=== PATIENT | female | born 1965 | race Caucasian/White ===

== ENCOUNTER → 2016-09-19 | Outpatient (CLI) | payer OTHER ==
--- NOTE | 2016-09-19 14:31 | MM ---
Reason for exam: screening (asymptomatic). Baseline mammogram. History: Patient has history of other cancer at age 20 and had first child at age 32. Family history of breast cancer in maternal grandmother at age 73, breast cancer in paternal grandmother at age 50, and breast cancer in brother at age 18. Physical Findings: Nurse Summary: 0.5cm nodule in the left breast at 10 o'clock (nurse mm). MG Screening Mammo w CAD Bilateral CC and MLO view(s) were taken. There are scattered fibroglandular densities. Finding: There are typically benign calcifications in the left breast. There is no discrete abnormality. These results were verbally communicated with the patient and result sheet given to the patient on 09/19/16. ASSESSMENT: Benign, BI-RAD 2 RECOMMENDATION: Routine screening mammogram of both breasts in 1 year.
== END | disposition home or self-care (01) ==
LOC: RADMAMWWP 13:45
PROVIDERS: ATTEND Internal Medicine
DX: Z12.31 Encounter for screening mammogram for malignant neoplasm of breast (principal)

== ENCOUNTER → 2017-08-24 | Outpatient (CLI) | payer OTHER ==
--- NOTE | 2017-08-24 08:34 | US ---
EXAMINATION TYPE: US abdomen complete DATE OF EXAM: 08/24/2017 COMPARISON: NONE CLINICAL HISTORY: R10.9 abd and pel pain, N94.6 dysmenorrhagia. EXAM MEASUREMENTS: Liver Length: 17.1 cm Gallbladder Wall: 0.3 cm CBD: 0.3 cm Spleen: 11.2 cm Right Kidney: 11.8 x 4.6 x 6.4 cm Left Kidney: 12.7 x 4.9 x 5.4 cm exam somewhat limited due to body habitus and midline bowel gas. Pancreas: not visualized due to bowel gas Liver: wnl Gallbladder: No stones seen Evidence for sonographic Forte's sign: No CBD: wnl Spleen: wnl Right Kidney: No hydronephrosis or masses seen Left Kidney: No hydronephrosis or masses seen Upper IVC: wnl Abd Aorta: wnl The liver is homogenous. The intrahepatic portion of the IVC and proximal abdominal aorta are within normal limits. There is no evidence of cholelithiasis. Common bile duct is unremarkable. The visu alized portions of the pancreas are homogenous. The spleen is unremarkable. Kidneys are symmetric a nd free of hydronephrosis. No renal lesions are seen. IMPRESSION: Unremarkable study.
--- NOTE | 2017-08-24 08:37 | US ---
EXAMINATION TYPE: US pelvis complete transvag DATE OF EXAM: 08/24/2017 COMPARISON: NONE CLINICAL HISTORY: R10.9 abd and pel pain, N94.6 dysmenorrhagia. TECHNIQUE: Transvaginal (TV) and Transabdominal (TA) Date of LMP: June 2017 EXAM MEASUREMENTS: Uterus: 9.0 x 4.5 x 5.6 cm Endometrial Stripe: 1.3 cm Right Ovary: 5.4 x 4.2 x 3.3 cm Left Ovary: 2.7 x 3.0 x 1.4 cm 1. Uterus: Anteverted wnl 2. Endometrium: measures 1.3 cm, patient is perimenopausal 3. Right Ovary: cyst with daughter cyst measures 3.3 x 3.2 x 3.5 cm. 4. Left Ovary: wnl. 5. Bilateral Adnexa: wnl 6. Posterior cul-de-sac: no free fluid IMPRESSION: 1. Complex right ovarian cyst. Follow-up evaluation in 6 weeks is advised.
== END | disposition home or self-care (01) ==
LOC: RADUSWWP 07:36
PROVIDERS: ATTEND Internal Medicine
DX: N83.201 Unspecified ovarian cyst, right side (principal); Z88.6 Allergy status to analgesic agent; Z88.7 Allergy status to serum and vaccine
CPT/HCPCS: 76700; 76830; 76856

== ENCOUNTER 2018-09-15 19:36 | Emergency (ER) | payer BC, OTHER ==
[2018-09-15] MEDS ORDERED: DOCUSATE 283 MG/5 ML ENEMA RECTAL STA (20:42)
[2018-09-15 21:18] LABS: Basophils # (A) 0.1 k/uL (0-0.2); Basophils % (A) 1 %; Eosinophils # (A) 0.3 k/uL (0-0.7); Eosinophils % (A) 3 %; HGB 14.5 gm/dL (11.4-16.0); Lymphocytes # (A) 3.6 k/uL (1.0-4.8); Lymphocytes % (A) 41 %; MCH 30.4 pg (25.0-35.0); MCHC 33.7 g/dL (31.0-37.0); MCV 90.4 fL (80.0-100.0); Mean Platelet Volume 7.6; Monocytes # (A) 0.5 k/uL (0-1.0); Monocytes % (A) 5 %; Neutrophils # (A) 4.3 k/uL (1.3-7.7); Neutrophils % (A) 49 %; Platelet Count 285 k/uL (150-450); RBC 4.75 m/uL (3.80-5.40); RDW 13.1 % (11.5-15.5); WBC 8.8 k/uL (3.8-10.6)
[2018-09-15 21:27] LABS: ALT 24 U/L (9-52); AST 18 U/L (14-36); Alkaline Phosphatase 103 U/L (38-126); Anion Gap 8 mmol/L; Blood Urea Nitrogen 15 mg/dL (7-17); Calcium 9.9 mg/dL (8.4-10.2); Carbon Dioxide 26 mmol/L (22-30); Chloride 106 mmol/L (98-107); Glucose 87 mg/dL (74-99); Potassium 3.6 mmol/L (3.5-5.1); Sodium 140 mmol/L (137-145); Total Bilirubin 0.4 mg/dL (0.2-1.3); Total Protein 7.1 g/dL (6.3-8.2)
--- NOTE | 2018-09-15 21:42 | XR ---
EXAMINATION TYPE: XR KUB DATE OF EXAM: 09/15/2018 9:36 PM CLINICAL HISTORY: Constipation for 3 weeks TECHNIQUE: Single upright image of the abdomen is obtained. COMPARISON: None. FINDINGS: Scattered gas is seen in nondilated small bowel loops. Gas and fecal material is seen in no ndilated colon. There is no pneumoperitoneum or abnormal calcification appreciated. The lung bases ar e clear and the osseous structures are intact. IMPRESSION: Nonobstructive bowel gas pattern.
--- NOTE | 2018-09-15 21:50 | ED ---
General Adult HPI - General Chief complaint: Abdominal Pain Stated complaint: Constipated Time Seen by Provider: 09/15/18 20:39 Source: patient, family, RN notes reviewed, old records reviewed Mode of arrival: ambulatory Limitations: no limitations - History of Present Illness Initial comments: 53-year-old female patient with no pertinent past medical history presents to ED with approximately 3 weeks of waxing and waning constipation. Patient does report that she had a small bowel movement yesterday. Patient reports that she does have some sensation of abdominal fullness, and some mild low back pain which she normally gets she is constipated. Patient is tried multiple remedies at home without success. Patient not been previously evaluated for this problem. Patient denies any abdominal pain. Systemic: Pt denies fatigue, myalgia, fever/chills, rash. Pt denies weakness, night sweats, weight loss. Neuro: Pt denies headache, visual disturbances, syncope or pre-syncope. HEENT: Pt denies ocular discharge or irritation, otalgia, rhinorrhea, ph aryngitis or notable lymphadenopathy. Cardiopulmonary: Pt denies chest pain, SOB, heart palpitations, dyspnea on exertion. Abdominal/GI: Pt denies abdominal pain, n/v/d. : Pt denies dysuria, burning w/ urination, frequency/urgency. Denies new onset urinary or bowel incontinence. MSK: Pt denies myalgia, loss of strength or function in extremities. Neuro: Pt denies new onset weakness, paresthesias. - Related Data Home Medications Medication Instructions Recorded Confirmed Citalopram Hydrobromide [CeleXA] 40 mg PO DAILY 05/06/14 09/30/15 Losartan [Cozaar] 100 mg PO DAILY 05/06/14 09/30/15 Cetirizine HCl [Zyrtec] 10 mg PO DAILY 08/17/15 09/30/15 Clopidogrel [Plavix] 75 mg PO DAILY 08/17/15 09/30/15 Isosorbide Mononitrate ER [Imdur] 60 mg PO DAILY 08/17/15 09/30/15 Nitroglycerin Sl Tabs [Nitrostat] 0.4 mg SUBLINGUAL Q5M PRN 08/17/15 09/30/15 Pantoprazole Sodium [Protonix] 40 mg PO DAILY 08/17/15 09/30/15 Potassium 550 meq PO TID 08/17/15 09/30/15 traMADol HCl [Ultram] 50 mg PO Q4H PRN 08/17/15 09/30/15 L.acidoph,Paracasei, B.lactis 1 each PO DAILY 09/25/15 09/30/15 [Probiotic] Previous Rx's Medication Instructions Recorded ALPRAZolam [Xanax] 0.25 mg PO Q6HR PRN #0 tab 09/30/15 Allergies Allergy/AdvReac Type Severity Reaction Status Date / Time codeine Allergy Unknown Verified 09/15/18 19:43 tetanus and diphtheria Allergy Rash/Hives Verified 09/15/18 19:43 toxoids aspirin AdvReac Nausea & Verified 09/15/18 19:43 Vomiting Review of Systems ROS Statement: Those systems with pertinent positive or pertinent negative responses have been documented in the HPI. ROS Other: All systems not noted in ROS Statement are negative. 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 ulcer, hx. of low potassium per pt, SOB w/activitysee DR Latham H & P History of Any Multi-Drug Resistant Organisms: None Reported Past Surgical History: No Surgical Hx Reported Additional Past Surgical History / Comment(s): leep procedure Past Anesthesia/Blood Transfusion Reactions: No Reported Reaction Past Psychological History: Anxiety Smoking Status: Current every day smoker Past Alcohol Use History: None Reported Past Drug Use History: None Reported - Past Family History Mother Family Medical History: Congestive Heart Failure (CHF), CVA/TIA, Diabetes Mellitus, Hypertension Father Family Medical History: Cancer, COPD Additional Family Medical History / Comment(s): colon cancer General Exam - General Exam Comments Initial Comments: Constitutional: NAD, AOX3, Pt has pleasant affect. HEENT: NC/AT, trachea midline, neck supple, no lymphadenopathy. Posterior pharynx non erythematous, without exudates. External ears appear normal, without discharge. Mucous membranes moist. Eyes PERRLA, EOM intact. There is no scleral icterus. No pallor noted. Cardiopulmonary: RRR, no murmurs, rubs or gallops, no JVD noted. Lungs CTAB in anterior and posterior hurd. No peripheral edema. Abdominal exam: Abdomen soft and non-distended. Abdomen non-tender to palpation in all 4 quadrants. Bowel sounds active in LLQ. No hepatosplenomegaly. No ecchymosis Neuro: CN II-XII grossly intact. No nuchal rigidity. MSK: No posterior calf tenderness bilaterally, homans sign negative bilaterally. Posterior tibialis and radial pulse +2 bilaterally. Sensation intact in upper and lower extremities. Full active ROM in upper and lower extremities, 5/5 stregnth. Limitations: no limitations Course Vital Signs 09/15/18 09/15/18 19:38 21:09 Temperature 98.4 F 98.3 F Pulse Rate 77 67 Respiratory 16 18 Rate Blood Pressure 159/88 148/99 O2 Sat by Pulse 97 93 L Oximetry Medical Decision Making - Medical Decision Making 53-year-old female patient with no pertinent past medical history presents to ED with approximately 3 weeks of waxing and waning constipation. Patient does report that she had a small bowel movement yesterday. Patient reports that she does have some sensation of abdominal fullness, and some mild low back pain which she normally gets she is constipated. Patient is tried multiple remedies at home without success. Patient not been previously evaluated for this problem. Patient denies any abdominal pain. Patient vital signs stable, afebrile. Physical exam denies acute pathology. Abdomen soft and nondistended. Abdomen nontender to palpation in all 4 quadrants. Bowel sounds active. Pat ient does report that she is passing flatus. Laboratory investigations revealed noncompressive CBC, CMP. KUB displayed no acute abdomen. No bowel obstruction. Patient was administered a Therevac and she did have a bowel movement. Patient to follow with primary care physician on Monday for continued evaluation treatment of her constipation. Patient to return to ED if new signs symptoms develop or condition worsens in any way. Case discussed with Dr. Lafleur. - Lab Data Result diagrams: 09/15/18 21:06 09/15/18 21:06 Lab Results 09/15/18 09/15/18 Range/Units 21:06 21:06 WBC 8.8 (3.8-10.6) k/uL RBC 4.75 (3.80-5.40) m/uL Hgb 14.5 (11.4-16.0) gm/dL Hct 43.0 (34.0-46.0) % MCV 90.4 (80.0-100.0) fL MCH 30.4 (25.0-35.0) pg MCHC 33.7 (31.0-37.0) g/dL RDW 13.1 (11.5-15.5) % Plt Count 285 (150-450) k/uL Neutrophils % 49 % Lymphocytes % 41 % Monocytes % 5 % Eosinophils % 3 % Basophils % 1 % Neutrophils # 4.3 (1.3-7.7) k/uL Lymphocytes # 3.6 (1.0-4.8) k/uL Monocytes # 0.5 (0-1.0) k/uL Eosinophils # 0.3 (0-0.7) k/uL Basophils # 0.1 (0-0.2) k/uL Sodium 140 (137-145) mmol/L Potassium 3.6 (3.5-5.1) mmol/L Chloride 106 (98-107) mmol/L Carbon Dioxide 26 (22-30) mmol/L Anion Gap 8 mmol/L BUN 15 (7-17) mg/dL Creatinine 0.70 (0.52-1.04) mg/dL Est GFR (CKD-EPI)AfAm >90 (>60 ml/min/1.73 sqM) Est GFR (CKD-EPI)NonAf >90 (>60 ml/min/1.73 sqM) Glucose 87 (74-99) mg/dL Calcium 9.9 (8.4-10.2) mg/dL Total Bilirubin 0.4 (0.2-1.3) mg/dL AST 18 (14-36) U/L ALT 24 (9-52) U/L Alkaline Phosphatase 103 (38-126) U/L Total Protein 7.1 (6.3-8.2) g/dL Albumin 4.0 (3.5-5.0) g/dL Disposition Clinical Impression: Constipation Disposition: HOME SELF-CARE Condition: Stable Instructions (If sedation given, give patient instructions): High Fiber Diet (ED), Constipation (ED) Additional Instructions: Patient to adhere to previously discussed treatment plan and will take medication(s) as directed. Patient to follow up with PCP in 1-2 days. Patient to return to ED if symptoms do not improve. Is patient prescribed a controlled substance at d/c from ED?: No Referrals: Roberta Dahl MD [Primary Care Provider] - 1-2 days
[2018-09-15 22:59] VITALS: BP 124/77; PULSE 72; RESP 16; TEMP 98.4
== END 2018-09-15 23:02 | disposition home or self-care (01) ==
LOC: EC 19:36
DX: K59.00 Constipation, unspecified (principal); K21.9 Gastro-esophageal reflux disease without esophagitis; F41.9 Anxiety disorder, unspecified; F17.200 Nicotine dependence, unspecified, uncomplicated; Z79.02 Long term (current) use of antithrombotics/antiplatelets; Z79.899 Other long term (current) drug therapy; Z88.5 Allergy status to narcotic agent; Z88.6 Allergy status to analgesic agent; Z88.7 Allergy status to serum and vaccine
CPT/HCPCS: 36415; 74018; 80053; 85025; 99284

== ENCOUNTER 2018-09-25 08:31 | Day surgery (SDC) | payer BC ==
[2018-09-20 16:04] VITALS: BMI 30.7
[~2018-09-25 08:31] MED LIST: DEXAMETHASONE SOD PHOSPHATE 10 MG/ML 1 ML VIAL IV ONE; LACTATED RINGERS 1,000 ML IV SCH; ONDANSETRON 4 MG/2 ML VIAL IVP ONE
[2018-09-25 08:58] VITALS: RESP 16; TEMP 97.6
[2018-09-25] MEDS ORDERED: LIDOCAINE 1% 20 ML VIAL (10MG/ML) FOR IV START INTRADERMA ONE (09:06)
[2018-09-25] MEDS ORDERED: PROPOFOL 10 MG/ML 20 ML VIAL IV ONE (11:27)
[2018-09-25] MEDS ORDERED: LIDOCAINE 1% INJ 10MG/ML (20 ML MDV) ONE (11:27)
[2018-09-25] MEDS ORDERED: GLYCOPYRROLATE 0.2 MG/ML 2 ML VIAL ONE (11:27)
--- NOTE | 2018-09-25 12:13 | P.PCN ---
Date of Procedure: 09/25/18 Procedure(s) Performed: Procedures: 1. Esophagogastroduodenoscopy and biopsy. 2. Colonoscopy. Preoperative diagnosis: GERD, nausea and change in bowel habits. Postoperative diagnosis: 1. Small sliding hiatal hernia with no obvious esophagitis or complicated reflux disease. 2. Mild antral gastritis. 3. Biopsies obtained from the duodenum, antrum and esophagus. 4. Poor colon preparation, otherwise, exam to the cecum shows no obvious polyps or tumors. Preparation: HalfLytely prep. Sedation: Was provided by anesthesia. Brief clinical history: The patient is a 53-year-old female who is scheduled for this evaluation because of nausea, reflux symptoms and change in bowel habits in the form of constipation. No significant weight loss or black stools. The patient has chronic reflux and had history of peptic ulcer several years back. This evaluation is to assess for complicated reflux disease, colon neoplasia or other pathology. Procedure: With the patient on her left lateral decubitus position and after informed consent and adequate sedation, I passed the Olympus-GIF H190 video upper endoscope through the cricopharyngeus down the esophagus. There was a small sliding hiatal hernia but the esophagus showed no evidence of esophagitis or complicated reflux disease. The endoscope was then passed into the stomach which was insufflated with air and inspected in detail including the retroflex view in the cardia. There was some mottling and erythema in the antrum but no ulcers or erosions. Pyloric channel, duodenal bulb, post bulbar area and descending duodenum appeared within normal limits. I obtained biopsies from the duodenum, antrum and esophagus then the endoscope was withdrawn and I proceeded with the colonoscopy. Perianal area did not show any fissures or fistulas. There were no masses felt on digital rectal examination. The Olympus CFH 190L video colonoscope was then inserted in the rectum in the usual fashion and advanced to the cecum. The preparation was poor, however, there were no large polyps or tumors or any evidence of obstruction to account for her symptoms. Certainly, this was not an adequate exam to look for small polyps or superficial pathology because of the poor preparation. I retroflexed the endoscope in the rectum before the endoscope was withdrawn. The patient tolerated the procedure well. Plan: The patient was reassured. Will await biopsy results. For colon cancer screening, I recommended repeat exam after 2 day preparation at her earliest convenience. She will follow-up with you as planned.
[2018-09-25 12:30] VITALS: BP 118/76; PULSE 66
== END 2018-09-25 12:41 | disposition home or self-care (01) ==
LOC: ORWHC2ENDO 08:31
DX: K29.50 Unspecified chronic gastritis without bleeding (principal); K20.0 Eosinophilic esophagitis; K21.9 Gastro-esophageal reflux disease without esophagitis; R19.4 Change in bowel habit; K44.9 Diaphragmatic hernia without obstruction or gangrene; Z87.11 Personal history of peptic ulcer disease; I10 Essential (primary) hypertension; I20.9 Angina pectoris, unspecified; F17.200 Nicotine dependence, unspecified, uncomplicated; M19.90 Unspecified osteoarthritis, unspecified site; Z86.73 Personal history of transient ischemic attack (TIA), and cerebral infarction without residual deficits; Z79.02 Long term (current) use of antithrombotics/antiplatelets; Z79.899 Other long term (current) drug therapy; Z88.5 Allergy status to narcotic agent; Z88.6 Allergy status to analgesic agent; Z91.040 Latex allergy status
CPT/HCPCS: 81025; 88305; 45378; 43239; J2001; J2704

== ENCOUNTER 2019-05-27 17:17 | Observation (INO) | payer BC ==
[2019-05-27] MEDS ORDERED: SODIUM CHLORIDE 0.9% 1,000 ML IV STA (18:27)
--- NOTE | 2019-05-27 18:33 | ED ---
General Adult HPI <AmeeApoorvaIndy Janet - Last Filed: 05/27/19 19:13> - General Source: patient, RN notes reviewed Mode of arrival: ambulatory Limitations: no limitations <Nader Obrien - Last Filed: 05/27/19 22:03> - General Chief complaint: Syncope Stated complaint: Near syncope Time Seen by Provider: 05/27/19 17:50 - History of Present Illness Initial comments: Is a 53-year-old female with a prior history of TIA for half years ago who states she's had for the past month a headache located over the occipital parietal region normally 78/10 severity and is worse /10 she states she began having episodes of almost passing out recently have been as many as 2 or 3 times a day. She has been seen by her doctor and is in the process of being set up with neurology. She initially denied any fevers chills nausea vomiting sweats he later states that she's had some shakes past 2 days he also started having vaginal bleeding that she's been through menopause already. No other modifying factors this time she is states when the pain gets very severe she feels like all of her limbs just go very weak nothing focal however. (Nader Obrien) - Related Data Home Medications Medication Instructions Recorded Confirmed Citalopram Hydrobromide [CeleXA] 40 mg PO DAILY 05/06/14 09/20/18 Losartan [Cozaar] 75 mg PO DAILY 05/06/14 09/20/18 Cetirizine HCl [Zyrtec] 10 mg PO DAILY 08/17/15 09/20/18 Clopidogrel [Plavix] 75 mg PO DAILY 08/17/15 09/20/18 Isosorbide Mononitrate ER [Imdur] 60 mg PO DAILY 08/17/15 09/20/18 Nitroglycerin Sl Tabs [Nitrostat] 0.4 mg SUBLINGUAL Q5M PRN 08/17/15 09/20/18 Pantoprazole Sodium [Protonix] 40 mg PO DAILY 08/17/15 09/20/18 Potassium 550 meq PO TID 08/17/15 09/20/18 traMADol HCl [Ultram] 50 mg PO Q4H PRN 08/17/15 09/20/18 Allergies Allergy/AdvReac Type Severity Reaction Status Date / Time apple Allergy Itching Verified 05/27/19 21:58 codeine Allergy PASSED OUT Verified 05/27/19 21:58 latex Allergy Rash/Hives Verified 05/27/19 21:58 tetanus and diphtheria Allergy Rash/Hives Verified 05/27/19 21:58 toxoids aspirin AdvReac Nausea & Verified 05/27/19 21:58 Vomiting Review of Systems ROS Other: All systems not noted in ROS Statement are negative. <Indy Lubin - Last Filed: 05/27/19 19:13> ROS Other: All systems not noted in ROS Statement are negative. <Nader Obrien - Last Filed: 05/27/19 22:03> ROS Statement: Those systems with pertinent positive or pertinent negative responses have been documented in the HPI. 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 ulcer, hx. of low potassium per pt, ,TIA History of Any Multi-Drug Resistant Organisms: None Reported Past Surgical History: No Surgical Hx Reported Additional Past Surgical History / Comment(s): leep procedure Past Anesthesia/Blood Transfusion Reactions: No Reported Reaction Past Psychological History: Anxiety Smoking Status: Current every day smoker Past Alcohol Use History: None Reported Past Drug Use History: None Reported - Past Family History Mother Family Medical History: Congestive Heart Failure (CHF), CVA/TIA, Diabetes Mellitus, Hypertension Father Family Medical History: Cancer, COPD Additional Family Medical History / Comment(s): colon cancer <Nader Obrien - Last Filed: 05/27/19 22:03> General Exam External exam: Present: normal external exam. Absent: swelling, lesions, lacerations Speculum exam: Present: cervical discharge (Brownish/reddish discharge present). Absent: erythema, foreign body, laceration By manual exam: Present: normal by manual exam <Indy Lubin - Last Filed: 05/27/19 19:13> Limitations: no limitations General appearance: alert, anxious Head exam: Present: atraumatic, normocephalic, normal inspection, other (Some tenderness palpation of the occipital scalp especially on the left this is extending down to the occipital scalp and into the paraspinous muscles of the neck.) Eye exam: Present: normal appearance, PERRL, EOMI. Absent: scleral icterus, conjunctival injection, periorbital swelling ENT exam: Present: normal exam, mucous membranes moist Neck exam: Present: normal inspection, full ROM, other (No stridor JVD or bruits no spinous process tenderness. Full range of motion). Absent: tenderness, meningismus, lymphadenopathy Respiratory exam: Present: normal lung sounds bilaterally. Absent: respiratory distress, wheezes, rales, rhonchi, stridor Cardiovascular Exam: Present: regular rate, normal rhythm, normal heart sounds. Absent: systolic murmur, diastolic murmur, rubs, gallop, clicks GI/Abdominal exam: Present: soft, normal bowel sounds. Absent: distended, ten derness, guarding, rebound, rigid Extremities exam: Present: normal inspection, full ROM, normal capillary refill. Absent: tenderness, pedal edema, joint swelling, calf tenderness Back exam: Present: normal inspection Neurological exam: Present: alert, oriented X3, CN II-XII intact Psychiatric exam: Present: normal affect, normal mood Skin exam: Present: warm, dry, intact, normal color. Absent: rash <Nader Obrien - Last Filed: 05/27/19 22:03> - General Exam Comments Initial Comments: This is a well-developed obese female who is awake alert oriented 3 (Nader Obrien) Course Vital Signs 05/27/19 05/27/19 17:27 21:58 Temperature 98.3 F Pulse Rate 86 72 Respiratory 18 17 Rate Blood Pressure 158/98 144/95 O2 Sat by Pulse 97 96 Oximetry EKG Findings - EKG Results: EKG: interpreted by ERMD (Sinus rhythm 84. We'll 136 QRS duration 90 QT since QTC 378/446 nonspecific inferior configuration also nonspecific anterior configuration.) <Nader Obrien - Last Filed: 05/27/19 22:03> Medical Decision Making - Lab Data Result diagrams: 05/27/19 15:50 05/27/19 15:50 <Indy Lubin - Last Filed: 05/27/19 19:13> - Lab Data Result diagrams: 05/27/19 15:50 05/27/19 15:50 - Radiology Data Radiology results: report reviewed (I did review the imaging and report no acute findings.), image reviewed <Nader Obrien - Last Filed: 05/27/19 22:03> - Medical Decision Making Patient did get some relief from her headache however thus far the near syncopal episodes or unexplained. On reevaluation patient states she's not actually ever passed out she felt like she could have and can't 3 episodes today. I did discuss the findings with the patient family I did recommend admission the patient will be admitted I did discuss case with Dr. Marshall. The patient will be seen by neurology in the morning. (Nader Obrien) - Lab Data Lab Results 05/27/19 05/27/19 05/27/19 Range/Units 15:50 15:50 15:50 WBC 13.0 H (3.8-10.6) k/uL RBC 5.00 (3.80-5.40) m/uL Hgb 15.6 (11.4-16.0) gm/dL Hct 45.9 (34.0-46.0) % MCV 91.8 (80.0-100.0) fL MCH 31.2 (25.0-35.0) pg MCHC 34.0 (31.0-37.0) g/dL RDW 13.0 (11.5-15.5) % Plt Count 336 (150-450) k/uL Neutrophils % 81 % Lymphocytes % 14 % Monocytes % 4 % Eosinophils % 1 % Basophils % 0 % Neutrophils # 10.5 H (1.3-7.7) k/uL Lymphocytes # 1.8 (1.0-4.8) k/uL Monocytes # 0.5 (0-1.0) k/uL Eosinophils # 0.1 (0-0.7) k/uL Basophils # 0.1 (0-0.2) k/uL PT 10.4 (9.0-12.0) sec INR 1.0 (<1.2) APTT 24.6 (22.0-30.0) sec Sodium 140 (137-145) mmol/L Potassium 4.3 (3.5-5.1) mmol/L Chloride 101 (98-107) mmol/L Carbon Dioxide 29 (22-30) mmol/L Anion Gap 10 mmol/L BUN 10 (7-17) mg/dL Creatinine 0.76 (0.52-1.04) mg/dL Est GFR (CKD-EPI)AfAm >90 (>60 ml/min/1.73 sqM) Est GFR (CKD-EPI)NonAf >90 (>60 ml/min/1.73 sqM) Glucose 106 H (74-99) mg/dL Calcium 10.4 H (8.4-10.2) mg/dL Magnesium 1.8 (1.6-2.3) mg/dL Total Bilirubin 0.2 (0.2-1.3) mg/dL AST 19 (14-36) U/L ALT 18 (9-52) U/L Alkaline Phosphatase 119 (38-126) U/L Creatine Kinase 32 (30-135) U/L Troponin I (0.000-0.034) ng/mL Total Protein 8.3 H (6.3-8.2) g/dL Albumin 4.8 (3.5-5.0) g/dL Urine Color Urine Appearance (Clear) Urine pH (5.0-8.0) Ur Specific [place] (1.001-1.035) Urine Protein (Negative) Urine Glucose (UA) (Negative) Urine Ketones (Negative) Urine Blood (Negative) Urine Nitrite (Negative) Urine Bilirubin (Negative) Urine Urobilinogen (<2.0) mg/dL Ur Leukocyte Esterase (Negative) Urine RBC (0-5) /hpf Urine WBC (0-5) /hpf Ur Squamous Epith Cells (0-4) /hpf Trichomonas Ag (Rapid) (Negative) 05/27/19 05/27/19 05/27/19 Range/Units 15:50 19:00 19:35 WBC (3.8-10.6) k/uL RBC (3.80-5.40) m/uL Hgb (11.4-16.0) gm/dL Hct (34.0-46.0) % MCV (80.0-100.0) fL MCH (25.0-35.0) pg MCHC (31.0-37.0) g/dL RDW (11.5-15.5) % Plt Count (150-450) k/uL Neutrophils % % Lymphocytes % % Monocytes % % Eosinophils % % Basophils % % Neutrophils # (1.3-7.7) k/uL Lymphocytes # (1.0-4.8) k/uL Monocytes # (0-1.0) k/uL Eosinophils # (0-0.7) k/uL Basophils # (0-0.2) k/uL PT (9.0-12.0) sec INR (<1.2) APTT (22.0-30.0) sec Sodium (137-145) mmol/L Potassium (3.5-5.1) mmol/L Chloride (98-107) mmol/L Carbon Dioxide (22-30) mmol/L Anion Gap mmol/L BUN (7-17) mg/dL Creatinine (0.52-1.04) mg/dL Est GFR (CKD-EPI)AfAm (>60 ml/min/1.73 sqM) Est GFR (CKD-EPI)NonAf (>60 ml/min/1.73 sqM) Glucose (74-99) mg/dL Calcium (8.4-10.2) mg/dL Magnesium (1.6-2.3) mg/dL Total Bilirubin (0.2-1.3) mg/dL AST (14-36) U/L ALT (9-52) U/L Alkaline Phosphatase (38-126) U/L Creatine Kinase (30-135) U/L Troponin I <0.012 (0.000-0.034) ng/mL Total Protein (6.3-8.2) g/dL Albumin (3.5-5.0) g/dL Urine Color Light Yellow Urine Appearance Clear (Clear) Urine pH 7.0 (5.0-8.0) Ur Specific [place] 1.006 (1.001-1.035) Urine Protein Negative (Negative) Urine Glucose (UA) Negative (Negative) Urine Ketones Negative (Negative) Urine Blood Small H (Negative) Urine Nitrite Negative (Negative) Urine Bilirubin Negative (Negative) Urine Urobilinogen <2.0 (<2.0) mg/dL Ur Leukocyte Esterase Negative (Negative) Urine RBC 1 (0-5) /hpf Urine WBC 1 (0-5) /hpf Ur Squamous Epith Cells 2 (0-4) /hpf Trichomonas Ag (Rapid) Negative (Negative) Disposition <Indy Lubin - Last Filed: 05/27/19 19:13> <Nader Obrien - Last Filed: 05/27/19 22:03> Clinical Impression: Near syncope, Cephalgia Disposition: ADMITTED IP TO THIS HOSP Condition: Fair Referrals: Roberta Dahl MD [Primary Care Provider] - 1-2 days
[2019-05-27 18:51] LABS: Basophils # (A) 0.1 k/uL (0-0.2); Basophils % (A) 0 %; Eosinophils # (A) 0.1 k/uL (0-0.7); Eosinophils % (A) 1 %; HCT 45.9 % (34.0-46.0); HGB 15.6 gm/dL (11.4-16.0); Lymphocytes # (A) 1.8 k/uL (1.0-4.8); Lymphocytes % (A) 14 %; MCH 31.2 pg (25.0-35.0); MCV 91.8 fL (80.0-100.0); Mean Platelet Volume 6.8; Monocytes # (A) 0.5 k/uL (0-1.0); Monocytes % (A) 4 %; Neutrophils # (A) 10.5 k/uL (1.3-7.7); Neutrophils % (A) 81 %; Platelet Count 336 k/uL (150-450)
--- NOTE | 2019-05-27 18:55 | CT ---
EXAMINATION TYPE: CT brain marissa leach DATE OF EXAM: 05/27/2019 COMPARISON: None HISTORY: Syncope and head pain. CT DLP: 1568.[address] of the brain was performed. The ventricles, basal cisterns and sulci overlying the cerebral convexities demonstrate mild enlargem ent. There is no evidence for intracranial hemorrhage or sulcal effacement. There is decreased attenuatio n about the periventricular white matter and deep white matter of both cerebral hemispheres, compatib le with chronic small vessel ischemia. No mass effects are seen. If symptoms persist consider MRI. Osseous calvarium is intact. IMPRESSION: 1. Age related atrophic and chronic small vessel ischemic change without acute intracranial process seen at this time. CT Cervical Spine: Unenhanced CT of the cervical spine was performed with bone and soft tissue window settings submitted . Coronal and sagittal reconstruction is obtained. There is normal alignment and prevertebral soft tissues. No evidence for acute cervical fracture . Scattered degenerative disc disease and spondylosis. Biapical scarring. IMPRESSION: 1. No evidence for acute fracture or subluxation of the cervical spine.
[2019-05-27 18:59] LABS: Partial Thromboplastin Time 24.6 sec (22.0-30.0); Prothrombin Time 10.4 sec (9.0-12.0)
[2019-05-27 19:00] LABS: ALT 18 U/L (9-52); AST 19 U/L (14-36); African American GFR (CKD) >90 (>60 ml/min/1.73 sqM); Albumin 4.8 g/dL (3.5-5.0); Alkaline Phosphatase 119 U/L (38-126); Anion Gap 10 mmol/L; Blood Urea Nitrogen 10 mg/dL (7-17); Calcium 10.4 mg/dL (8.4-10.2); Carbon Dioxide 29 mmol/L (22-30); Chloride 101 mmol/L (98-107); Creatine Kinase 32 U/L (30-135); Glucose 106 mg/dL (74-99); Magnesium 1.8 mg/dL (1.6-2.3); Non-African American GFR(CKD) >90 (>60 ml/min/1.73 sqM); Potassium 4.3 mmol/L (3.5-5.1); Sodium 140 mmol/L (137-145); Total Bilirubin 0.2 mg/dL (0.2-1.3); Total Protein 8.3 g/dL (6.3-8.2)
--- NOTE | 2019-05-27 19:06 | XR ---
EXAMINATION TYPE: XR chest 2V DATE OF EXAM: 05/27/2019 COMPARISON: NONE HISTORY: Shortness of breath TECHNIQUE: Frontal and lateral views of the chest are obtained. FINDINGS: Scattered senescent parenchymal changes noted. No evidence for infiltrate. No evidence for atelectasis. Heart size is stable. Mediastinal structures are stable and grossly unremarkable. No evidence for hilar prominence. Degenerative changes dorsal spine. IMPRESSION: 1. No evidence for acute pulmonary disease.
[2019-05-27 19:26] LABS: Appearance,Urine Clear (Clear); Bilirubin,Urine Negative (Negative); Blood,Urine Small (Negative); Color,Urine Light Yellow; Glucose,Urine (UA) Negative (Negative); Ketones,Urine Negative (Negative); Leukocyte Esterase,Urine Negative (Negative); Nitrite,Urine Negative (Negative); Protein,Urine Negative (Negative); RBC,Urine 1 /hpf (0-5); Specific Gravity,Urine 1.006 (1.001-1.035); Squamous Epithelial Cell,Urine 2 /hpf (0-4); Urobilinogen,Urine <2.0 mg/dL (<2.0); WBC,Urine 1 /hpf (0-5)
[2019-05-27] MEDS ORDERED: HYDROmorphone 1 MG/ML 1 ML SYRINGE IVP STA (21:02)
[2019-05-27] MEDS ORDERED: ONDANSETRON 4 MG/2 ML VIAL IVP PRN (22:09)
[2019-05-27] MEDS ORDERED: HYDROmorphone 1 MG/ML 1 ML SYRINGE IVP PRN (22:09)
[2019-05-27] MEDS ORDERED: NALOXONE 0.4 MG/ML 1 ML VIAL IV PRN (22:09)
[2019-05-27] MEDS ORDERED: MECLIZINE 12.5 MG TAB PO PRN (22:18)
[2019-05-27] MEDS ORDERED: NITROGLYCERIN SL TABS 0.4 MG TAB SUBLINGUAL PRN (22:18)
[2019-05-28] MEDS ORDERED: buPROPion SR 150 MG TABLET.ER PO SCH ×2 (00:44→19:00)
[2019-05-28] MEDS: LOSARTAN 25 MG TAB PO SCH ×2 (01:30→20:56)
[2019-05-28] MEDS: ISOSORBIDE MONONITRATE ER 60 MG TAB.ER.24H PO SCH ×2 (01:31→20:56)
[2019-05-28] MEDS: QUEtiapine 50 MG TAB PO SCH ×2 (01:31→20:57)
[2019-05-28] MEDS: LOSARTAN 50 MG TAB PO SCH ×2 (01:56→20:57)
[2019-05-28] MEDS: SODIUM CHLORIDE 0.9% 1,000 ML IV SCH ×2 (04:42→21:07)
--- NOTE | 2019-05-28 07:47 | P.HPIM ---
History of Present Illness This is a pleasant 53 years old female with past medical history of angina status post cardiac cath which was cleared as per documentation, CVA/TIA, GERD, hypertension, osteoarthritis, anxiety, cigarette smoker about half pack per day. Who presents because of headache and periods of losing control of self, pt states for the last month she is been having headache almost continously but it got more sever from 4-5/10 to 10/10 before she loose control of self and her limbs , it lasts about 5 min however she never lose consciousness during these attacks after that she returns back to baseline. During these attacks she denies seizure-like activity as at bedtime when these episodes. No urine or bowel incontinence, no tongue biting. He was getting these attacks about every 2 days over the last month, got more frequent over the last week in the rate of 2-3 times per day so she decided to come to the hospital. Also she follows with Dr. Frankel the rod welder once a year since she had the TIA, she saw him about 2 weeks ago and he placed her on a heart monitor and pending the results reading. Patient denies other symptoms. She denies chest pain or dyspnea or palpitation, no dizziness, no blurred vision or difficulty talking or swallowing. No weakness or numbness in limbs. No urine or bowel incontinence. However 3 days ago she had postmenopausal bleeding, about half cup of blood, with no genital or abdominal pain. She has been opposed for about 1.5 years. Vitals stable and showing mild leukocytosis of 13 K, unremarkable INR, BMP and liver enzymes. First troponin is negative, urine analysis is negative. EKG showing normal sinus rhythm at [address]-T changes. QTC is 446. Chest x-ray: No acute pulmonary process. CT of the head: No acute process, and cervical CT scan: No fracture or subluxation. In the emergency room she got 1 dose of Dilaudid 1 mg and Ativan limits She smokes about a pack that last her 3 days Review of Systems CONSTITUTIONAL: No fever, no malaise, no fatigue. HEENT: No recent visual problems or hearing problems. Denied any sore throat. CARDIOVASCULAR: No orthopnea, PND, no palpitations, no syncope. PULMONARY: No shortness of breath, no cough, no hemoptysis. GASTROINTESTINAL: No diarrhea, no nausea, no vomiting, no abdominal pain. Normoactive bowel sounds. NEUROLOGICAL: No headaches, no weakness, no numbness. HEMATOLOGICAL: Denies any bleeding or petechiae. GENITOURINARY: Denies any burning micturition, frequency, or urgency. MUSCULOSKELETAL/RHEUMATOLOGICAL: Denies any joint pain, swelling, or any muscle pain. ENDOCRINE: Denies any polyuria or polydipsia. 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 ulcer, hx. of low potassium per pt, ,TIA History of Any Multi-Drug Resistant Organisms: None Reported Past Surgical History: No Surgical Hx Reported, Heart Catheterization Additional Past Surgical History / Comment(s): leep procedure, CARDIAC CATH CLEAR Past Anesthesia/Blood Transfusion Reactions: No Reported Reaction Past Psychological History: Anxiety Smoking Status: Current every day smoker Past Alcohol Use History: None Reported Additional Past Alcohol Use History / Comment(s): has smoked since age of 14, 10 cigs/day Past Drug Use History: None Reported - Past Family History Mother Family Medical History: Congestive Heart Failure (CHF), CVA/TIA, Diabetes Mellitus, Hypertension Father Family Medical History: Cancer, COPD Additional Family Medical History / Comment(s): colon cancer Medications and Allergies Home Medications Medication Instructions Recorded Confirmed Type Citalopram Hydrobromide [CeleXA] 40 mg PO DAILY@189905/06/14 05/27/19 History Losartan [Cozaar] 50 mg PO DAILY@189905/06/14 05/27/19 History Cetirizine HCl [Zyrtec] 10 mg PO DAILY@189908/17/15 05/27/19 History Isosorbide Mononitrate ER [Imdur] 60 mg PO DAILY@189908/17/15 05/27/19 History Nitroglycerin Sl Tabs [Nitrostat] 0.4 mg SUBLINGUAL Q5M PRN 08/17/15 05/27/19 History Pantoprazole Sodium [Protonix] 40 mg PO DAILY@189908/17/15 05/27/19 History Aspirin EC [Ecotrin Low Dose] 81 mg PO DAILY@189905/27/19 05/27/19 History Cholecalciferol (Vitamin D3) 2,000 unit PO DAILY@19005/27/19 05/27/19 History [Vitamin D3] Cider Vinegar [Apple Cider Vinegar] 300 mg PO DAILY@189905/27/19 05/27/19 History Cyanocobalamin (Vitamin B-12) 1,000 mcg PO DAILY@19005/27/19 05/27/19 History [Vitamin B-12] Garlic 1 tab PO DAILY@189905/27/19 05/27/19 History Losartan [Cozaar] 25 mg PO DAILY@189905/27/19 05/27/19 History Meclizine [Antivert] 12.5 mg PO DAILY PRN 05/27/19 05/27/19 History Vaughn-3 Fatty Acids/Fish Oil [Fish 1 cap PO DAILY@189905/27/19 05/27/19 History Oil 1,000 mg Softgel] Ondansetron [Zofran ODT] 4 mg PO Q8HR PRN 05/27/19 05/27/19 History Potassium 200 mg PO DAILY@189905/27/19 05/27/19 History QUEtiapine [SEROquel] 50 mg PO HS 05/27/19 05/27/19 History buPROPion HCL [Wellbutrin SR] 150 mg PO DAILY@189905/27/19 05/27/19 History Allergies Allergy/AdvReac Type Severity Reaction Status Date / Time apple Allergy Itching Verified 05/27/19 21:58 codeine Allergy PASSED OUT Verified 05/27/19 21:58 latex Allergy Rash/Hives Verified 05/27/19 21:58 tetanus and diphtheria Allergy Rash/Hives Verified 05/27/19 21:58 toxoids aspirin AdvReac Nausea & Verified 05/27/19 21:58 Vomiting Physical Exam Vitals: Vital Signs Temp Pulse Pulse Resp BP BP Pulse Ox 05/28/19 04:00 69 18 05/28/19 00:00 98.8 F 69 18 155/96 05/27/19 22:39 98.8 F 69 18 155/96 05/27/19 21:58 72 17 144/95 96 05/27/19 17:27 98.3 F 86 18 158/98 97 Intake and Output 05/27/19 05/27/19 05/28/19 14:59 22:59 06:59 Other: Voiding Method Toilet # Voids 2 Weight 86.183 kg GENERAL: The patient is alert and oriented x3, not in any acute distress. Well developed, well nourished. HEENT: Pupils are round and equally reacting to light. EOMI. No scleral icterus. No conjunctival pallor. Normocephalic, atraumatic. No pharyngeal erythema. No thyromegaly. CARDIOVASCULAR: S1 and S2 present. No murmurs, rubs, or gallops. PULMONARY: Chest is clear to auscultation, no wheezing or crackles. ABDOMEN: Soft, nontender, nondistended, normoactive bowel sounds. No palpable organomegaly. MUSCULOSKELETAL: No joint swelling or deformity. Mild tenderness in the neck area with no shoulder tenderness EXTREMITIES: No cyanosis, clubbing, or pedal edema. NEUROLOGICAL: Gross neurological examination did not reveal any focal deficits. Cranial nerves are grossly intact, strength is 5/5 and sensation is intact in all extremities. Meningeal signs are absent SKIN: No rashes. No petechiae Results CBC & Chem 7: 05/27/19 15:50 05/27/19 15:50 Labs: Abnormal Lab Results - Last 24 Hours (Table) 05/27/19 05/27/19 05/27/19 Range/Units 15:50 15:50 19:00 WBC 13.0 H (3.8-10.6) k/uL Neutrophils # 10.5 H (1.3-7.7) k/uL Glucose 106 H (74-99) mg/dL Calcium 10.4 H (8.4-10.2) mg/dL Total Protein 8.3 H (6.3-8.2) g/dL Urine Blood Small H (Negative) Microbiology - Last 24 Hours (Table) 05/27/19 19:35 Genital Culture - Preliminary Cervix Thrombosis Risk Factor Assmnt - Choose All That Apply Any of the Below Risk Factors Present?: Yes Each Factor Represents 1 point: Age 41-60 years Other Risk Factors: No Other congenital or acquired thrombophilia - If yes, enter type in comment: No Thrombosis Risk Factor Assessment Total Risk Factor Score: 1 Thrombosis Risk Factor Assessment Level: Low Risk Assessment and Plan Assessment: Attacks of sudden loss of muscle tone associated with headache, concerning for neurological problem like cataplexy versus other Postmenopausal bleeding Mild leukocytosis, no other signs of infection, no respiratory symptoms, no urinary symptoms, no rash, no diarrhea History of TIA Hypertension GERD Primary osteoarthritis Anxiety Nicotine dependence, patient is counseled and she refuses nicotine patch Plan: This is a pleasant 53 years old female who presents with attacks of loss of tone and headache. Neurological consult. Carotid duplex was ordered by ED team, we'll follow the results. Also we will consult a outside b2b sales for her postmenopausal bleeding Labs and medication were reviewed.. Continue same treatment. Continue with symptomatic treatment. Resume home medication. Monitor lytes and vitals. DVT and GI prophylaxis. Further recommendations of the clinical course of the patient DVT prophylaxis: Subcutaneous heparin GI Prophylaxis: Pepcid Prognosis is guarded
--- NOTE | 2019-05-28 08:05 | US ---
EXAMINATION TYPE: US carotid duplex BILAT DATE OF EXAM: 05/28/2019 COMPARISON: NONE CLINICAL HISTORY: Near syncopal episodes. almost passed out EXAM MEASUREMENTS: RIGHT: Peak Systolic Velocity (PSV) cm/sec ----- Right CCA: 47.8 ----- Right ICA: 65.0 ----- Right ECA: 102.9 ICA/CCA ratio: 1.4 RIGHT: End Diastole cm/sec ----- Right CCA: 13.9 ----- Right ICA: 26.5 ----- Right ECA: 16.0 LEFT: Peak Systolic Velocity (PSV) cm/sec ----- Left CCA: 54.5 ----- Left ICA: 82.6 ----- Left ECA: 76.5 ICA/CCA ratio: 1.5 LEFT: End Diastole cm/sec ----- Left CCA: 19.6 ----- Left ICA: 33.7 ----- Left ECA: 14.5 VERTEBRALS (direction of flow): Right Vertebral: Antegrade Left Vertebral: Antegrade Rhythm: Normal Mild homogeneous plaque with no significant stenosis seen Grayscale, color Doppler, spectral Doppler imaging performed. Waveform analysis does not show signifi cant stenosis of the internal carotid arteries by Doppler criteria. IMPRESSION: No hemodynamic significant stenosis of the proximal internal carotid arteries by Doppler criteria, an indirect measurement of carotid stenosis
[2019-05-28] MEDS: HEPARIN SODIUM,PORCINE 5,000 UNIT/ML 1 ML VIAL SQ SCH ×2 (08:11→20:57)
[2019-05-28 08:16] LABS: Basophils # (A) 0.1 k/uL (0-0.2); Basophils % (A) 1 %; Eosinophils # (A) 0.2 k/uL (0-0.7); Eosinophils % (A) 2 %; HCT 43.2 % (34.0-46.0); HGB 14.4 gm/dL (11.4-16.0); Lymphocytes % (A) 33 %; MCH 30.9 pg (25.0-35.0); MCHC 33.3 g/dL (31.0-37.0); Mean Platelet Volume 7.4; Monocytes # (A) 0.6 k/uL (0-1.0); Monocytes % (A) 5 %; Neutrophils # (A) 6.9 k/uL (1.3-7.7); Neutrophils % (A) 57 %; Platelet Count 307 k/uL (150-450); RBC 4.64 m/uL (3.80-5.40); WBC 12.1 k/uL (3.8-10.6)
[2019-05-28 08:38] LABS: African American GFR (CKD) >90 (>60 ml/min/1.73 sqM); Anion Gap 8 mmol/L; Blood Urea Nitrogen 10 mg/dL (7-17); Calcium 9.3 mg/dL (8.4-10.2); Carbon Dioxide 29 mmol/L (22-30); Chloride 104 mmol/L (98-107); Glucose 80 mg/dL (74-99); Non-African American GFR(CKD) >90 (>60 ml/min/1.73 sqM); Potassium 3.8 mmol/L (3.5-5.1); Sodium 141 mmol/L (137-145)
[2019-05-28] MEDS ORDERED: FAMOTIDINE 20 MG/2 ML VIAL IV SCH (09:00)
--- NOTE | 2019-05-28 12:04 | US ---
EXAMINATION TYPE: US pelvic complete DATE OF EXAM: 05/28/2019 COMPARISON: Previous dated 08/24/2017 CLINICAL HISTORY: post menopausal bleed. Post monopausal bleeding. TECHNIQUE: Transabdominal (TA). Patient refused transvaginal exam EXAM MEASUREMENTS: Uterus: 8.4 x 3.5 x 4.1 cm Endometrial Stripe: .8 cm Left Ovary: 2.6 x 2.0 x 2.3 cm 1. Uterus: Anteverted wnl 2. Endometrium: wnl 3. Right Ovary: Obscured by overlying bowel gas 4. Left Ovary: wnl 5. Bilateral Adnexa: wnl 6. Posterior cul-de-sac: wnl IMPRESSION: Limitations the exam. No significant abnormalities evident
--- NOTE | 2019-05-28 12:14 | P.CNNES ---
History of Present Illness Consult date: 05/28/19 Requesting physician: Nader Obrien Reason for Consult: Near syncopal episodes History of Present Illness: Patient is a 53-year-old female who came to the hospital for recurrent episodes of near syncope. Patient states that the symptoms initially started in December, occurred for a couple times and then went away. She was fine until a month ago when she started having these recurrent similar spells. Patient has developed constant pain in the top of the head and on the sides that she rates 4-6/10. Patient states that the pain feels like as if she has hit her head on the corner of the cabinet on standing up. The pain sometimes intensifies to 10/10 and then she "loses everything", which she describes as not feeling her arms or legs and her body gets numb. This lasts for about 5 minutes. Thereafter she wants to go to sleep and could sleep for a whole day. She never passes out with this episode. In the last 5 days these episodes are occurring about 3 times a day. Since 05/25/2019, the pain on the top has extended to the back of the head and the neck. Patient states that in the last few days, she has couple times woken up and feeling her body is shaking that may last for 5-10 minutes. She denies any fever or chills, although feels hot sometimes and gets cold sweat. She states that she was exposed to a person at her work, who was later diagnosed with viral meningitis. Patient denies diabetes or hyperlipidemia. She does have hypertension. She has smoked one third pack per day since age 20. Patient states she had history of a TIA 4 years ago for which she was started on Plavix 75 mg daily. Just on 05/11/2019, the Plavix was discontinued by her snath handle assembler and was started on aspirin 81 mg daily. Patient had an MRI of the brain with and without contrast on 02/04/2014 which revealed a nonenhancing signal changes within the shivam consistent with demyelinating disease, MS, Lyme disease. A follow-up MRI of the brain with contrast on 04/08/2014 was normal. Patient had a normal chest x-ray, carotid Doppler showed no significant strict stenosis. EKG showed normal sinus rhythm. Inferior infarct, age undetermined. Review of Systems Positive for headaches, tremors. Denies chest pain, shortness of breath, diplopia, loss of vision, slurred speech, facial droop. Denies dysphagia, nausea vomiting diarrhea. Patient is having some spotting for which she is being seen by a parking enforcement technician. All other review of systems unremarkable. 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 ulcer, hx. of low potassium per pt, ,TIA History of Any Multi-Drug Resistant Organisms: None Reported Past Surgical History: No Surgical Hx Reported, Heart Catheterization Additional Past Surgical History / Comment(s): leep procedure, CARDIAC CATH CLEAR Past Anesthesia/Blood Transfusion Reactions: No Reported Reaction Past Psychological History: Anxiety Smoking Status: Current every day smoker Past Alcohol Use History: None Reported Additional Past Alcohol Use History / Comment(s): has smoked since age of 14, 10 cigs/day Past Drug Use History: None Reported - Past Family History Mother Family Medical History: Congestive Heart Failure (CHF), CVA/TIA, Diabetes Mellitus, Hypertension Father Family Medical History: Cancer, COPD Additional Family Medical History / Comment(s): colon cancer Medications and Allergies Home Medications Medication Instructions Recorded Confirmed Type Citalopram Hydrobromide [CeleXA] 40 mg PO DAILY@189905/06/14 05/27/19 History Losartan [Cozaar] 50 mg PO DAILY@189905/06/14 05/27/19 History Cetirizine HCl [Zyrtec] 10 mg PO DAILY@189908/17/15 05/27/19 History Isosorbide Mononitrate ER [Imdur] 60 mg PO DAILY@189908/17/15 05/27/19 History Nitroglycerin Sl Tabs [Nitrostat] 0.4 mg SUBLINGUAL Q5M PRN 08/17/15 05/27/19 History Pantoprazole Sodium [Protonix] 40 mg PO DAILY@189908/17/15 05/27/19 History Aspirin EC [Ecotrin Low Dose] 81 mg PO DAILY@189905/27/19 05/27/19 History Cholecalciferol (Vitamin D3) 2,000 unit PO DAILY@189905/27/19 05/27/19 History [Vitamin D3] Cider Vinegar [Apple Cider Vinegar] 300 mg PO DAILY@1900 05/27/19 05/27/19 History Cyanocobalamin (Vitamin B-12) 1,000 mcg PO DAILY@1900 05/27/19 05/27/19 History [Vitamin B-12] Garlic 1 tab PO DAILY@1900 05/27/19 05/27/19 History Losartan [Cozaar] 25 mg PO DAILY@1900 05/27/19 05/27/19 History Meclizine [Antivert] 12.5 mg PO DAILY PRN 05/27/19 05/27/19 History Grace-3 Fatty Acids/Fish Oil [Fish 1 cap PO DAILY@19005/27/19 05/27/19 History Oil 1,000 mg Softgel] Ondansetron [Zofran ODT] 4 mg PO Q8HR PRN 05/27/19 05/27/19 History Potassium 200 mg PO DAILY@1900 05/27/19 05/27/19 History QUEtiapine [SEROquel] 50 mg PO HS 05/27/19 05/27/19 History buPROPion HCL [Wellbutrin SR] 150 mg PO DAILY@1900 05/27/19 05/27/19 History Allergies Allergy/AdvReac Type Severity Reaction Status Date / Time apple Allergy Itching Verified 05/27/19 21:58 codeine Allergy PASSED OUT Verified 05/27/19 21:58 latex Allergy Rash/Hives Verified 05/27/19 21:58 tetanus and diphtheria Allergy Rash/Hives Verified 05/27/19 21:58 toxoids aspirin AdvReac Nausea & Verified 05/27/19 21:58 Vomiting Physical Examination - Vital Signs Vital Signs: Vital Signs Temp Pulse Pulse Resp BP BP Pulse Ox 05/28/19 11:24 97.5 F L 68 18 122/80 97 05/28/19 07:10 97.6 F 71 18 91/57 94 L 05/28/19 04:00 69 18 05/28/19 00:00 98.8 F 69 18 155/96 05/27/19 22:39 98.8 F 69 18 155/96 05/27/19 21:58 72 17 144/95 96 05/27/19 17:27 98.3 F 86 18 158/98 97 Intake and Output 05/27/19 05/28/19 05/28/19 22:59 06:59 14:59 Other: Voiding Method Toilet Toilet # Voids 2 Weight 86.183 kg On examination patient is a middle aged female, in no distress. Patient is alert and awake oriented to time place and person. Speech and language functions are normal. Attention and concentration fund of knowledge is adequate. On cranial nerve examination pupils are round and reactive to light, visual hurd are full on confrontation, extraocular muscles are intact. She has mild left facial asymmetry on active testing. Tongue protrudes the midline. Palatal elevation and sensation normal. On muscle strength testing patient has left pronation, no drift. Strength is normal in the arms and legs distally and proximally. Reflexes are 2+ all over and plantars are downgoing. Sensory touch is equal with no neglect. No ataxia for [id number] testing, tone and bulk of muscles normal. Gait deferred. There is no carotid bruit or murmur, peripheral pulses present. Results Calcium is mildly elevated 10.4. UA is negative. Her last hemoglobin A1c 5.8 on 01/19/2017. B12 was 2172 on 05/08/2019, TSH is normal, total T4 normal. Cholesterol is 227, LDL 136, HDL 49 and triglycerides 209. Liver panel is normal. Patient previously had negative rheumatoid factor, Sjogren's antibodies, LIVING ADVISOR antibodies, dsDNA and Larson antibody on 05/06/2014. - Laboratory Findings CBC and BMP: 05/28/19 07:24 05/28/19 07:24 Abnormal Lab Findings: Abnormal Labs 05/27/19 05/27/19 05/27/19 15:50 15:50 19:00 WBC 13.0 H Neutrophils # 10.5 H Glucose 106 H Calcium 10.4 H Total Protein 8.3 H Urine Blood Small H 05/28/19 07:24 WBC 12.1 H Neutrophils # Glucose Calcium Total Protein Urine Blood Assessment and Plan Assessment: * 53-year-old female admitted with new onset headache for the last 1 month, has developed recurrent stereotypical episodes of numbness and weakness of all 4 extremities, lasting for 4-5 minutes, followed by fatigue and somnolence. Concerning for TIAs, given significant small vessel disease in the pontine region noted on the previous MRI 4 years ago. Rule out seizures, though appears less likely. Rule out vertebrobasilar insufficiency. * Hypertension * Hyperlipidemia * Tobacco use Plan: * Patient will undergo a stat EEG to rule out any epileptiform activity. * We will check an MRI of the brain to rule out CVA and to follow-up on the previous pontine lesion. We will also check an MRA of head and MRA of the neck with and without contrast to rule out vertebral artery dissection or basilar artery stenosis. * We will stop Wellbutrin, as Wellbutrin can lower the seizure threshold. Patient was started on Wellbutrin in December 2018, when these symptoms started. * We will resume Plavix 75 mg daily for stroke prevention (stopped Plavix 05/11/2019 by her snath handle assembler), as symptoms got worse after stopping Plavix. Continue aspirin 81 mg daily. Agree with starting Lipitor for dyslipidemia. Patient was not on the statins at home. * Check hemoglobin A1c and fasting lipid panel. * Tobacco cessation. * Neurology will follow.
[2019-05-28 12:30] LABS: Cholesterol 256 mg/dL (<200); HDL Cholesterol 54 mg/dL (40-60); LDL Cholesterol,Calculated 173 mg/dL (0-99); Triglycerides 145 mg/dL (<150)
[2019-05-28] MEDS: CLOPIDOGREL 75 MG TAB PO SCH (13:37)
[2019-05-28 13:46] LABS: N. gonorrhoeae,PCR Negative (Neg,Equiv); Neisseria Source Cervix
[2019-05-28 14:00] LABS: C. trachomatis,PCR Negative (Neg,Equiv); Chlamydia trachomatis Source Cervix
--- NOTE | 2019-05-28 14:57 | MR ---
EXAMINATION TYPE: MR brain wo con DATE OF EXAM: 05/28/2019 2:48 PM COMPARISON: NONE HISTORY: TIA FINDINGS: The ventricles, basal cisterns and sulci overlying the cerebral convexities are minimally enlarged. There is evidence of minimal periventricular white matter ischemic demyelination. Increased T2 signa l within the region of the midbrain and shivam likely reflective of remote insults in this region. Remote deep white matter insults are also noted. No acute edema is seen on diffusion weighted imaging. There is no evidence for midline shift or mass effect. Acute intracranial hemorrhage or extra-axial collection is not evident. The paranasal sinuses and mastoid air cells are well-aerated. IMPRESSION: Age-related atrophic and chronic small vessel ischemic change. No acute intracranial process at this time.
--- NOTE | 2019-05-28 15:10 | MR ---
EXAMINATION TYPE: MR angio head wo con DATE OF EXAM: 05/28/2019 3:06 PM COMPARISON: NONE HISTORY: Recurrent TIA, R/O vertebral artery dissection Three-dimensional [id number] intracranial MRA was performed with multiple intensity projection im ages submitted and source data reviewed at the workstation. The vertebrobasilar system as well as intracranial portions of the internal carotid arteries and thei r major tributaries are patent. I do not see evidence for sizable aneurysm or vascular malformation. IMPRESSION: Normal study.
--- NOTE | 2019-05-28 15:51 | EEG ---
ELECTROENCEPHALOGRAM REPORT DATE OF SERVICE: 05/28/2019. PREAMBLE: This is a 53-year-old female who has recurrent episodes of some altered mental status, with weakness and numbness of arms and legs. This study is performed to evaluate for any epileptiform activity. EEG FINDINGS: A routine 21-channel awake digital EEG recording was accomplished utilizing the 10/20 international system with bipolar and referential montages. The background consists of well developed, well regulated, moderate amplitude activity in 8 to 9 Hz alpha. The background is posterior-dominant and reactive to eye opening and closing. Photic driving response was seen in some flash frequencies. Drowsiness was seen with appearance of bilaterally symmetric theta frequency. Deeper stages of sleep were not seen. Hyperventilation was not performed. During the later part of the study, there were 2 instances of relatively higher amplitude, slightly sharply contoured theta frequency seen in the left temporal region, occurred during drowsiness. EKG rhythm lead revealed no obvious arrhythmia. IMPRESSION AND PLAN: This is a borderline abnormal study due to the presence of 2 instances of slightly higher amplitude, sharply contoured theta seen in the left temporal region. This may be a nonspecific finding, although it may suggest underlying cortical neuronal dysfunction with some irritability. As this abnormality was questionable, would suggest prolonged or sleep-deprived EEG for further evaluation. Clinical correlation is strongly recommended. MMODL / IJN: [id number] / MTDD
[2019-05-28] MEDS ORDERED: ASPIRIN 81 MG PO SCH (19:00)
[2019-05-28] MEDS ORDERED: LOSARTAN 25 MG TAB PO SCH (19:00)
[2019-05-28] MEDS ORDERED: NON FORMULARY DRUG (Omega-3 Fatty Acids/Fish Oil [Fish Oil 1,000 Mg Softgel] 1 CAP) PO SCH (19:00)
[2019-05-28] MEDS ORDERED: LOSARTAN 50 MG TAB PO SCH (19:00)
[2019-05-28] MEDS ORDERED: CITALOPRAM HYDROBROMIDE 20 MG TAB PO SCH (19:00)
[2019-05-28] MEDS ORDERED: POTASSIUM 200 MG PO SCH (19:00)
[2019-05-28] MEDS ORDERED: CYANOCOBALAMIN 500 MCG TAB PO SCH (19:00)
[2019-05-28] MEDS ORDERED: ISOSORBIDE MONONITRATE ER 60 MG TAB.ER.24H PO SCH (19:00)
[2019-05-28] MEDS ORDERED: LORATADINE 10 MG TAB PO SCH (19:00)
[2019-05-28] MEDS ORDERED: NON FORMULARY DRUG (Garlic [Garlic] 1 TAB) PO SCH (19:00)
[2019-05-28] MEDS ORDERED: CHOLECALCIFEROL 1,000 UNIT TAB PO SCH (19:00)
[2019-05-28] MEDS ORDERED: PANTOPRAZOLE 40 MG TABLET PO SCH (19:00)
--- NOTE | 2019-05-28 19:50 | P.OBCN ---
History of Present Illness Consult date: 05/28/19 Requesting physician: Quique Marshall Reason for consult: other (Postmenopausal bleeding) Chief complaint: Headaches History of present illness: Milly is a very pleasant 53-year-old female 1 para 1 who with through menarche at approximately age 12-13 and at age 51 stopped having periods. That was about a year and a half ago. She relates that she stopped abruptly and had some very dark clotty heavy bleeding just before it stopped. At that time she saw Dr. Carver at [facility] who did a Pap smear and some type of cervical biopsy as she also had a history of cervical disease. I do not have records for what was done so since entirely possible she also had a endometrial biopsy at that time. I don't have any prior ultrasounds either. Her ultrasound this morning did show a mildly thickened endometrium at 0.8 cm which is more than the standard of 0.5 cm for postmenopausal female. In discussing with her she relates that she passed about a half a couple blood 2 nights ago in an earlier today she also had a little bit of light bleeding but nothing heavy and nothing that is required had since then and at this time the bleeding appears to have stopped. I did interview her with her significant other and a due relate that they have had intercourse recently and they're concerned that potentially there is something going on from having intercourse. I did relate that it is possible that some of the bleeding was from the intercourse but with a thickened endometrium that needed to be evaluated either way. We discussed whether she would go back to Dr. Carver or she would see me, she expresses interest in just coming to see me in the office so we can schedule either an endometrial biopsy or D&C with hysteroscopy. All questions were answered for her at this time. An y significant pelvic exam was deferred until the office. Otherwise her vital signs are stable and afebrile. All questions were answered for her at this time she will follow up with me shortly after discharge once these other symptoms are improved and then we can move forwards getting final diagnosis for her. 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 ulcer, hx. of low potassium per pt, ,TIA History of Any Multi-Drug Resistant Organisms: None Reported Past Surgical History: No Surgical Hx Reported, Heart Catheterization Additional Past Surgical History / Comment(s): leep procedure, CARDIAC CATH CLEAR Past Anesthesia/Blood Transfusion Reactions: No Reported Reaction Past Psychological History: Anxiety Smoking Status: Current every day smoker Past Alcohol Use History: None Reported Additional Past Alcohol Use History / Comment(s): has smoked since age of 14, 10 cigs/day Past Drug Use History: None Reported - Past Family History Mother Family Medical History: Congestive Heart Failure (CHF), CVA/TIA, Diabetes Mellitus, Hypertension Father Family Medical History: Cancer, COPD Additional Family Medical History / Comment(s): colon cancer Medications and Allergies Home Medications Medication Instructions Recorded Confirmed Type Citalopram Hydrobromide [CeleXA] 40 mg PO DAILY@189905/06/14 05/27/19 History Losartan [Cozaar] 50 mg PO DAILY@189905/06/14 05/27/19 History Cetirizine HCl [Zyrtec] 10 mg PO DAILY@189908/17/15 05/27/19 History Isosorbide Mononitrate ER [Imdur] 60 mg PO DAILY@189908/17/15 05/27/19 History Nitroglycerin Sl Tabs [Nitrostat] 0.4 mg SUBLINGUAL Q5M PRN 08/17/15 05/27/19 History Pantoprazole Sodium [Protonix] 40 mg PO DAILY@189908/17/15 05/27/19 History Aspirin EC [Ecotrin Low Dose] 81 mg PO DAILY@189905/27/19 05/27/19 History Cholecalciferol (Vitamin D3) 2,000 unit PO DAILY@189905/27/19 05/27/19 History [Vitamin D3] Cider Vinegar [Apple Cider Vinegar] 300 mg PO DAILY@189905/27/19 05/27/19 History Cyanocobalamin (Vitamin B-12) 1,000 mcg PO DAILY@189905/27/19 05/27/19 History [Vitamin B-12] Garlic 1 tab PO DAILY@189905/27/19 05/27/19 History Losartan [Cozaar] 25 mg PO DAILY@189905/27/19 05/27/19 History Meclizine [Antivert] 12.5 mg PO DAILY PRN 05/27/19 05/27/19 History [place]-3 Fatty Acids/Fish Oil [Fish 1 cap PO DAILY@1900 05/27/19 05/27/19 History Oil 1,000 mg Softgel] Ondansetron [Zofran ODT] 4 mg PO Q8HR PRN 05/27/19 05/27/19 History Potassium 200 mg PO DAILY@1900 05/27/19 05/27/19 History QUEtiapine [SEROquel] 50 mg PO HS 05/27/19 05/27/19 History buPROPion HCL [Wellbutrin SR] 150 mg PO DAILY@1900 05/27/19 05/27/19 History Allergies Allergy/AdvReac Type Severity Reaction Status Date / Time apple Allergy Itching Verified 05/27/19 21:58 codeine Allergy PASSED OUT Verified 05/27/19 21:58 latex Allergy Rash/Hives Verified 05/27/19 21:58 tetanus and diphtheria Allergy Rash/Hives Verified 05/27/19 21:58 toxoids aspirin AdvReac Nausea & Verified 05/27/19 21:58 Vomiting Exam Osteopathic Statement: *. No significant issues noted on an osteopathic s tructural exam other than those noted in the History and Physical/Consult. Vital Signs Temp Pulse Pulse Resp BP BP Pulse Ox 05/28/19 19:02 98.0 F 83 16 126/81 97 05/28/19 15:29 97.7 F 83 18 142/89 98 05/28/19 11:24 97.5 F L 68 18 122/80 97 05/28/19 07:10 97.6 F 71 18 91/57 94 L 05/28/19 04:00 69 18 05/28/19 00:00 98.8 F 69 18 155/96 05/27/19 22:39 98.8 F 69 18 155/96 05/27/19 21:58 72 17 144/95 96 Intake and Output 05/28/19 05/28/19 05/28/19 06:59 14:59 22:59 Intake Total 340 240 Balance 340 240 Intake: Oral 240 240 Other 100 Other: Voiding Method Toilet Toilet Toilet # Voids 2 Results Result Diagrams: 05/28/19 07:24 05/28/19 07:24 Abnormal Lab Results - Last 24 Hours (Table) 05/28/19 05/28/19 Range/Units 07:24 07:24 WBC 12.1 H (3.8-10.6) k/uL Cholesterol 256 H (<200) mg/dL LDL Cholesterol, Calc 173 H (0-99) mg/dL Microbiology - Last 24 Hours (Table) 05/27/19 19:35 Genital Culture - Preliminary Cervix
[2019-05-28 20:30] LABS: Hemoglobin A1C 5.5 % (4.0-6.0)
[2019-05-28] MEDS: NICOTINE 7MG/24HR PATCH TRANSDERM SCH (20:56)
[2019-05-28] MEDS: AMOXIC-POT CLAV 875-125MG 1 EACH TAB PO SCH (20:57)
[2019-05-28] MEDS ORDERED: PRAVASTATIN SODIUM 80 MG TAB PO SCH (21:00)
[2019-05-28] MEDS ORDERED: QUEtiapine 50 MG TAB PO SCH (21:00)
[2019-05-28] MEDS ORDERED: ACETAMINOPHEN TAB 325 MG TAB PO STA (21:18)
[2019-05-29 06:21] LABS: Basophils # (A) 0.1 k/uL (0-0.2); Basophils % (A) 1 %; Eosinophils # (A) 0.2 k/uL (0-0.7); Eosinophils % (A) 2 %; HGB 13.9 gm/dL (11.4-16.0); Lymphocytes # (A) 3.9 k/uL (1.0-4.8); Lymphocytes % (A) 45 %; MCH 30.9 pg (25.0-35.0); MCHC 33.1 g/dL (31.0-37.0); MCV 93.2 fL (80.0-100.0); Mean Platelet Volume 7.4; Monocytes # (A) 0.5 k/uL (0-1.0); Monocytes % (A) 5 %; Neutrophils # (A) 3.9 k/uL (1.3-7.7); Neutrophils % (A) 45 %; Platelet Count 264 k/uL (150-450); WBC 8.6 k/uL (3.8-10.6)
[2019-05-29 06:31] LABS: African American GFR (CKD) >90 (>60 ml/min/1.73 sqM); Anion Gap 6 mmol/L; Blood Urea Nitrogen 10 mg/dL (7-17); Calcium 9.2 mg/dL (8.4-10.2); Carbon Dioxide 28 mmol/L (22-30); Chloride 106 mmol/L (98-107); Glucose 94 mg/dL (74-99); Non-African American GFR(CKD) >90 (>60 ml/min/1.73 sqM); Potassium 3.9 mmol/L (3.5-5.1); Sodium 140 mmol/L (137-145)
[2019-05-29] MEDS: HEPARIN SODIUM,PORCINE 5,000 UNIT/ML 1 ML VIAL SQ SCH (09:12)
[2019-05-29] MEDS: AMOXIC-POT CLAV 875-125MG 1 EACH TAB PO SCH (09:12)
[2019-05-29] MEDS: NICOTINE 7MG/24HR PATCH TRANSDERM SCH (09:12)
[2019-05-29] MEDS: CLOPIDOGREL 75 MG TAB PO SCH (09:12)
--- NOTE | 2019-05-29 10:51 | P.PN ---
Subjective Progress Note Date: 05/29/19 Patient states she is feeling much better. The headache has resolved. She has not had any further episodes of altered mental status. Patient appeared very pleasant. Wants to go home. Denies any focal symptoms. Patient is afebrile. WBC count is now normal 8.6. Normal differential. No signs of infection. Objective - Vital Signs Vital signs: Vital Signs Temp 97.7 F 05/29/19 07:35 Pulse 72 05/29/19 04:00 Resp 17 05/29/19 07:35 BP 93/57 05/29/19 07:35 Pulse Ox 96 05/29/19 07:35 Intake & Output 05/28/19 05/29/19 05/29/19 18:59 06:59 18:59 Intake Total 580 Balance 580 Intake: Oral 480 Other 100 Other: Voiding Method Toilet Toilet Toilet # Voids 1 - Exam Patient's mental status, speech and language functions are normal. Muscle strength is normal. No ataxia. Tone and bulk of muscles normal. - Labs CBC & Chem 7: 05/29/19 04:54 05/29/19 04:51 Labs: Abnormal Lab Results - Last 24 Hours (Table) 05/28/19 Range/Units 07:24 Cholesterol 256 H (<200) mg/dL LDL Cholesterol, Calc 173 H (0-99) mg/dL Assessment and Plan Assessment: * Recurrent episodes of numbness tingling and weakness of all 4 extremities, possible TIA. * Abnormal brain MRI with evidence of small vessel disease involving the shivam. Likely from vascular risk factors as below. * Hypertension * Hyperlipidemia * Tobacco use Plan: * EEG was reviewed. Mildly abnormal with left temporal slowing is of unclear etiology. Doubt seizures. No indication of antiepileptic medication. * MRI of the brain revealed no acute stroke. Patient does have significant small vessel disease noted in the shivam. This could be potentially symptomatic. MRA of the head was normal with no evidence of large vessel disease. * We will stop Wellbutrin, as Wellbutrin can lower the seizure threshold. Patient was started on Wellbutrin in December 2018, when these symptoms started. * Continue dual antiplatelet medications including Plavix 75 mg and aspirin 81 mg daily for stroke prevention. * Patient's hemoglobin A1c is 5.5. Total cholesterol is 256, LDL 173, HDL 54 and triglycerides 145. Target LDL is <100. Patient previously was not tolerant to Lipitor. Patient has been started on pravastatin 80 mg daily. * Strongly recommended tobacco cessation. * May follow-up with the neurology as an outpatient in 2-4 weeks. * Neurologically clear for discharge.
[2019-05-29 12:02] VITALS: BP 104/69; PULSE 67; RESP 18; TEMP 98.3
--- NOTE | 2019-05-30 21:56 | P.DS ---
Providers Date of admission: 05/29/19 09:09 Attending physician: Quique Marshall MD Consults: 05/27/19 22:16 Consult Physician Routine Consulting Provider: Ilda Sal Consult Reason/Comments: Near syncopal episodes Do you want consulting provider notified?: Yes 05/28/19 08:39 Consult Physician Routine Consulting Provider: Gavin West Consult Reason/Comments: post [place]ap[place] bleed Do you want consulting provider notified?: Yes Primary care physician: Nabila Granados Hospital Course: Dx: Attacks of sudden loss of muscle tone associated with headache, possible due to medication effect, or TIA, versus others Postmenopausal bleeding Mild leukocytosis, possible mild genital infection vs mild resp infection , responded to therapy and back to normal History of TIA Hypertension GERD Primary osteoarthritis Anxiety Nicotine dependence, patient is counseled and she refuses nicotine patch hospital course This is a pleasant 53 years old female with past medical history of angina status post cardiac cath which was cleared as per documentation, CVA/TIA, GERD, hypertension, osteoarthritis, anxiety, cigarette smoker about half pack per day. Who presents because of headache and periods of losing control of self, pt states for the last month she is been having headache almost continuously but it got more sever from 4-5/10 to 10/10 before she loose control of self and her limbs , it lasts about 5 min however she never lose consciousness during these attacks after that she returns back to baseline. During these attacks she denies seizure-like activity as at bedtime when these episodes. No urine or bowel incontinence, no tongue biting.He was getting these attacks about every 2 days over the last month, got more frequent over the last week in the rate of 2-3 times per day so she decided to come to the hospital.labs were showing mild leukocytosis of 13 K, CT of the head: No acute process, and cervical CT scan: No fracture or subluxation. neurologist evaluated the pt, EEG was reviewed. Mildly abnormal with left temporal slowing is of unclear etiology. Doubt seizures. No indication of antiepileptic medication per neurologist evaluation. MRI/MRA of the head did not show a cause . wellbutrin was stopped per neurologist recommendation. plavix is added to her Rx regiment. continue with aspirin and pravastatin. BP on the low side , so losartan was not added, pt to continue with he home medication for BP control and to f/u with her pcp pt was treated with short course of augmentin for possible mild genital infection vs mild resp infection.both improved and resolved prior to discharge and wbc is back to normal BP was on the low-normal lever, so we lowered her losartan from 75 to 50 mg daily and instructed to f/u with her doctors soon for rechecking BP and she ag rishi. Also she follows with Dr. Frankel the transportation clerk once a year since she had the TIA, she saw him about 2 weeks ago and he placed her on a heart monitor and pending the results reading. she told me that she intends to follow up with him soon for the results. 3 days prior to admission, she had postmenopausal bleeding, about half cup of blood, with no genital or abdominal pain. She has menopause for about 1.5 years. premium service representative evaluated pt , pelvic US; Her ultrasound this morning did show a mildly thickened endometrium at 0.8 cm which is more than the standard of 0.5 cm for postmenopausal female. pt will follow up with for either endometrial biopsy or D&C with hysteroscopy, and she told me the same. on the day of discharge she returned to her baseline with no chest pain, no dyspnea, no change in urine or bowel habit , no nausea or vomiting , no abd pain , she is tolerating diet well . no fever pt was cleared by neurologist and premium service representative teams for discharge Pt was instructed about the problems and management plan and Pt verbalized understanding and acceptance Pt is found stable and can be discharged to the community but needs follow up as outpt. pt was instructed to follow up with his PCP in one week and pt agrees pt agrees with appointments with neurology and gynecology services and their timing and stated he will follow up with both Discharge exam Gen.: Patient alert awake and oriented X 3, NOT IN DISTRESS CVS: s1-s2, RRR, no murmur CHEST:bilateral CTA, no wheezing or crepitation Abdomen: Soft, no tenderness, no distention, positive bowel sounds Extremities: No leg edema or induration time spent : more than 35 min Patient Condition at Discharge: Fair Plan - Discharge Summary New Discharge Prescriptions: New Amoxic-Pot Clav 875-125Mg [Augmentin 875-125] 1 each PO Q12HR #2 tab Nicotine 7Mg/24Hr Patch [Habitrol] 1 patch TRANSDERM DAILY #30 patch Clopidogrel [Plavix] 75 mg PO DAILY #30 tab Pravastatin Sodium [Pravachol] 80 mg PO HS #30 tab Losartan [Cozaar] 50 mg PO DAILY@1900 tab Continue Citalopram Hydrobromide [CeleXA] 40 mg PO DAILY@190 Cetirizine HCl [Zyrtec] 10 mg PO DAILY@190 Nitroglycerin Sl Tabs [Nitrostat] 0.4 mg SUBLINGUAL Q5M PRN PRN Reason: Chest Pain Isosorbide Mononitrate ER [Imdur] 60 mg PO DAILY@190 Pantoprazole Sodium [Protonix] 40 mg PO DAILY@190 QUEtiapine [SEROquel] 50 mg PO HS Meclizine [Antivert] 12.5 mg PO DAILY PRN PRN Reason: DIZZINESS Ondansetron [Zofran ODT] 4 mg PO Q8HR PRN PRN Reason: Nausea Aspirin EC [Ecotrin Low Dose] 81 mg PO DAILY@190 Potassium 200 mg PO DAILY@190 [place]-3 Fatty Acids/Fish Oil [Fish Oil 1,000 mg Softgel] 1 cap PO DAILY@190 Garlic 1 tab PO DAILY@190 Cyanocobalamin (Vitamin B-12) [Vitamin B-12] 1,000 mcg PO DAILY@190 Cider Vinegar [Apple Cider Vinegar] 300 mg PO DAILY@190 Cholecalciferol (Vitamin D3) [Vitamin D3] 2,000 unit PO DAILY@190 Discontinued Losartan [Cozaar] 50 mg PO DAILY@190 Losartan [Cozaar] 25 mg PO DAILY@190 buPROPion HCL [Wellbutrin SR] 150 mg PO DAILY@190 Discharge Medication List Citalopram Hydrobromide [CeleXA] 40 mg PO DAILY@19005/06/14 [History] Cetirizine HCl [Zyrtec] 10 mg PO DAILY@19008/17/15 [History] Isosorbide Mononitrate ER [Imdur] 60 mg PO DAILY@189908/17/15 [History] Nitroglycerin Sl Tabs [Nitrostat] 0.4 mg SUBLINGUAL Q5M PRN 08/17/15 [History] Pantoprazole Sodium [Protonix] 40 mg PO DAILY@1900 02/08/16 [History] Aspirin EC [Ecotrin Low Dose] 81 mg PO DAILY@189905/27/19 [History] Cholecalciferol (Vitamin D3) [Vitamin D3] 2,000 unit PO DAILY@189905/27/19 [History] Cider Vinegar [Apple Cider Vinegar] 300 mg PO DAILY@189905/27/19 [History] Cyanocobalamin (Vitamin B-12) [Vitamin B-12] 1,000 mcg PO DAILY@189905/27/19 [History] Garlic 1 tab PO DAILY@189905/27/19 [History] Meclizine [Antivert] 12.5 mg PO DAILY PRN 05/27/19 [History] [place]-3 Fatty Acids/Fish Oil [Fish Oil 1,000 mg Softgel] 1 cap PO DAILY@189905/27/19 [History] Ondansetron [Zofran ODT] 4 mg PO Q8HR PRN 05/27/19 [History] Potassium 200 mg PO DAILY@189905/27/19 [History] QUEtiapine [SEROquel] 50 mg PO HS 05/27/19 [History] Amoxic-Pot Clav 875-125Mg [Augmentin 875-125] 1 each PO Q12HR #2 tab 05/29/19 [Rx] Clopidogrel [Plavix] 75 mg PO DAILY #30 tab 05/29/19 [Rx] Losartan [Cozaar] 50 mg PO DAILY@1899 tab 05/29/19 [Rx] Nicotine 7Mg/24Hr Patch [Habitrol] 1 patch TRANSDERM DAILY #30 patch 05/29/19 [Rx] Pravastatin Sodium [Pravachol] 80 mg PO HS #30 tab 05/29/19 [Rx] Follow up Appointment(s)/Referral(s): Gavin West DO [Doctor of Osteopathic Medicine] - 06/11/19 2:00 pm Steffanie Ramirez MD [STAFF PHYSICIAN] - 1 Week Nyla Matamoros MD [STAFF PHYSICIAN] - 06/17/19 10:30 am (Follow up with Dr. Vadim Matamoros (Neurology) as scheduled for you) Discharge Disposition: HOME SELF-CARE
== END 2019-05-29 14:20 | disposition home or self-care (01) ==
LOC: EC 17:17 → UNDOADMOB 22:11 → 1SOBS 22:11 → OBSVTOIN 05-29 09:09 → 1SOBS 05-29 09:09 → INTOOBSV 05-29 09:09 → UNDODISIN 05-29 14:20
PROVIDERS: ADMIT Internal Medicine; ATTEND Internal Medicine
DX: M62.89 Other specified disorders of muscle (principal); R51 Headache; N95.0 Postmenopausal bleeding; D72.829 Elevated white blood cell count, unspecified; Z86.73 Personal history of transient ischemic attack (TIA), and cerebral infarction without residual deficits; I10 Essential (primary) hypertension; F17.210 Nicotine dependence, cigarettes, uncomplicated; Z71.6 Tobacco abuse counseling; K21.9 Gastro-esophageal reflux disease without esophagitis; F41.9 Anxiety disorder, unspecified; M19.91 Primary osteoarthritis, unspecified site; E78.5 Hyperlipidemia, unspecified; I73.9 Peripheral vascular disease, unspecified; H91.92 Unspecified hearing loss, left ear; E66.9 Obesity, unspecified; Z68.30 Body mass index [BMI] 30.0-30.9, adult; Z79.82 Long term (current) use of aspirin; Z79.02 Long term (current) use of antithrombotics/antiplatelets; Z79.899 Other long term (current) drug therapy; Z98.890 Other specified postprocedural states; Z88.6 Allergy status to analgesic agent; Z91.040 Latex allergy status; Z88.5 Allergy status to narcotic agent; Z91.018 Allergy to other foods; Z83.3 Family history of diabetes mellitus; Z82.5 Family history of asthma and other chronic lower respiratory diseases; Z80.0 Family history of malignant neoplasm of digestive organs; Z82.49 Family history of ischemic heart disease and other diseases of the circulatory system
CPT/HCPCS: 96372 ×2; 96361; 96374; 99285; 36415; 95816; 93005; 80061; 80053; 80048 ×2; 82550; 83735; 84484; 85025 ×3; 85610; 85730; 81001; 87808; 87491; 87591; 87070; 83036; 71046; 76856; 93880; 72125; 70450; 70544; 70551; G0378 ×3; S4990 ×2; J1644 ×2; S0106; J1170

== ENCOUNTER → 2019-08-26 | Day surgery (SDC) | payer BC ==
[2019-08-21 16:26] VITALS: BMI 30.2
[~2019-08-26] MED LIST changes: -DEXAMETHASONE SOD PHOSPHATE 10 MG/ML 1 ML VIAL IV ONE; -LACTATED RINGERS 1,000 ML IV SCH; -ONDANSETRON 4 MG/2 ML VIAL IVP ONE; +SODIUM CHLORIDE 0.9% 1,000 ML IV SCH
[2019-08-26 10:07] VITALS: BP 133/71; PULSE 82; RESP 18; TEMP 97.8
--- NOTE | 2019-08-26 18:07 | P.PCN ---
Preoperative Diagnosis: Diagnosis Recurrent presyncope Patient of Dr. Lovett and Dr. Lisette Davis Twelve-lead ECG shows sinus rhythm normal AR narrow QRS isolated Q-wave in lead 3 normal QT interval Tilt table test per protocol Baseline blood pressure 129/80 mmHg Baseline heart rate 72 beats a minute Heart rate and blood pressure remained stable without any changes No evidence for neurocardiogenic syncope dysautonomia At the end of the procedure she is laid supine Impression Normal twelve-lead ECG Normal heart rate and blood pressure response to upright tilting
== END ==
LOC: CATHEP 09:46
PROVIDERS: ATTEND Internal Medicine Clinical Cardiac Electrophysiology
DX: R55 Syncope and collapse (principal); I10 Essential (primary) hypertension; E78.5 Hyperlipidemia, unspecified; I25.10 Atherosclerotic heart disease of native coronary artery without angina pectoris; I34.0 Nonrheumatic mitral (valve) insufficiency; I87.2 Venous insufficiency (chronic) (peripheral); F17.210 Nicotine dependence, cigarettes, uncomplicated; E66.9 Obesity, unspecified; Z68.30 Body mass index [BMI] 30.0-30.9, adult; Z88.5 Allergy status to narcotic agent; Z88.6 Allergy status to analgesic agent; Z91.040 Latex allergy status; Z88.7 Allergy status to serum and vaccine; Z86.73 Personal history of transient ischemic attack (TIA), and cerebral infarction without residual deficits; Z85.41 Personal history of malignant neoplasm of cervix uteri; Z79.82 Long term (current) use of aspirin; Z79.899 Other long term (current) drug therapy; Z79.02 Long term (current) use of antithrombotics/antiplatelets; Z82.49 Family history of ischemic heart disease and other diseases of the circulatory system
CPT/HCPCS: 81025; 93005; 93660

== ENCOUNTER 2019-10-14 06:16 | Day surgery (SDC) | payer BC ==
[2019-10-10 12:12] VITALS: BMI 32.3
--- NOTE | 2019-10-10 12:22 | P.HPOB ---
History of Present Illness H&P Date: 10/10/19 Chief Complaint: Postmenopausal bleeding Milly is a 54-year-old female with postmenopausal bleeding that had occurred in May 2019. 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 She had some syncopal episodes in July and therefore we need to reschedule until October slick cardiology could fully evaluate the cyst symptoms. Due to how long incidents since her bleeding and need for D&C even with covid outbreak, will plan D&C with or without hysteroscopy to rule out hyperplasia or cancer. Risks/benefits/alternatives to the procedure were reviewed with patient in detail and all questions were answered for her prior to proceeding to the operating room. On physical exam vital signs are stable and afebrile. Heart regular, lungs clear, extremities without pain. Abdomen soft and positive bowel sounds are noted. Pelvic exam is otherwise unremarkable. 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 Constipation. "small artery disease in my head", ulcer, eczema, cervical cancer History of Any Multi-Drug Resistant Organisms: None Reported Past Surgical History: Heart Catheterization Additional Past Surgical History / Comment(s): LEEP procedure. colonoscopy Past Anesthesia/Blood Transfusion Reactions: No Reported Reaction Smoking Status: Current every day smoker - Past Family History Mother Family Medical History: Deep Vein Thrombosis (DVT) Father Family Medical History: Cancer Additional Family Medical History / Comment(s): Colon cancer. Medications and Allergies Home Medications Medication Instructions Recorded Confirmed Type Citalopram Hydrobromide [CeleXA] 40 mg PO HS 05/06/14 10/10/19 History Cetirizine HCl [Zyrtec] 10 mg PO HS 08/17/15 10/10/19 History Isosorbide Mononitrate ER [Imdur] 60 mg PO HS 08/17/15 10/10/19 History Nitroglycerin Sl Tabs [Nitrostat] 0.4 mg SUBLINGUAL Q5M PRN 08/17/15 10/10/19 History Pantoprazole Sodium [Protonix] 40 mg PO HS 08/17/15 10/10/19 History Cholecalciferol (Vitamin D3) 2,000 unit PO HS 05/27/19 10/10/19 History [Vitamin D3] Cider Vinegar [Apple Cider Vinegar] 300 mg PO HS 05/27/19 10/10/19 History Cyanocobalamin (Vitamin B-12) 1,000 mcg PO HS 05/27/19 10/10/19 History [Vitamin B-12] Garlic 1 tab PO HS 05/27/19 10/10/19 History Meclizine [Antivert] 12.5 mg PO DAILY PRN 05/27/19 10/10/19 History [place]-3 Fatty Acids/Fish Oil [Fish 1 cap PO HS 05/27/19 10/10/19 History Oil 1,000 mg Softgel] Ondansetron [Zofran ODT] 4 mg PO Q8HR PRN 05/27/19 10/10/19 History Potassium 200 mg PO HS 05/27/19 10/10/19 History QUEtiapine [SEROquel] 50 mg PO HS 05/27/19 10/10/19 History Pravastatin Sodium [Pravachol] 80 mg PO HS #30 tab 05/29/19 10/10/19 Rx amLODIPine [Norvasc] 2.5 mg PO HS 08/21/19 10/10/19 History Butalbital/Acetaminophen 1 tab PO DIRECTED PRN 10/10/19 10/10/19 History [Butalbital/Acetaminophen 50-300 Tab] Clopidogrel [Plavix] 75 mg PO HS 10/10/19 10/10/19 History Losartan [Cozaar] 50 mg PO HS 10/10/19 10/10/19 History Allergies Allergy/AdvReac Type Severity Reaction Status Date / Time apple Allergy Itching Verified 10/10/19 11:57 codeine Allergy PASSED OUT Verified 10/10/19 11:57 latex Allergy Rash/Hives Verified 10/10/19 11:57 tetanus and diphtheria Allergy Rash/Hives Verified 10/10/19 11:57 toxoids aspirin AdvReac Nausea & Verified 10/10/19 11:57 Vomiting Exam Osteopathic Statement: *. No significant issues noted on an osteopathic structural exam other than those noted in the History and Physical/Consult. Intake and Output 10/09/19 10/10/19 10/10/19 22:59 06:59 14:59 Other: Weight 90.718 kg
[~2019-10-14 06:16] MED LIST changes: +HYDROmorphone 0.5 MG/0.5 ML SYRINGE IVP PRN; +LACTATED RINGERS 1,000 ML IV SCH; +LIDOCAINE 1% (10MG/ML) FOR IV START INTRADERMA PRN; +MIDAZOLAM 2 MG/2 ML VIAL IV PRN; +Pre Op ABX Message 1 EACH MISC MISCELLANE ONE; -SODIUM CHLORIDE 0.9% 1,000 ML IV SCH
[2019-10-14] MEDS ORDERED: LACTATED RINGERS 1,000 ML IV ONE (06:36)
[2019-10-14] MEDS ORDERED: SCOPOLAMINE 1.5MG/72HR PATCH TRANSDERM ONE (06:38)
[2019-10-14] MEDS ORDERED: DEXAMETHASONE SOD PHOS (MDV) 100 MG/10 ML VIAL IVP ONE (06:43)
[2019-10-14] MEDS ORDERED: ONDANSETRON 4 MG/2 ML VIAL IVP ONE (06:43)
[2019-10-14 06:54] LABS: Basophils # (A) 0.1 k/uL (0-0.2); Basophils % (A) 1 %; Eosinophils # (A) 0.2 k/uL (0-0.7); Eosinophils % (A) 2 %; HCT 41.7 % (34.0-46.0); HGB 13.9 gm/dL (11.4-16.0); Lymphocytes # (A) 3.9 k/uL (1.0-4.8); Lymphocytes % (A) 37 %; MCH 30.3 pg (25.0-35.0); MCHC 33.2 g/dL (31.0-37.0); MCV 91.2 fL (80.0-100.0); Monocytes # (A) 0.6 k/uL (0-1.0); Monocytes % (A) 5 %; Neutrophils # (A) 5.5 k/uL (1.3-7.7); Neutrophils % (A) 53 %; Platelet Count 275 k/uL (150-450); RBC 4.58 m/uL (3.80-5.40); RDW 12.6 % (11.5-15.5); WBC 10.4 k/uL (3.8-10.6)
[2019-10-14] MEDS ORDERED: LIDOCAINE 1% INJ 10MG/ML (20 ML MDV) ONE (07:41)
[2019-10-14] MEDS ORDERED: PROPOFOL 10 MG/ML 20 ML VIAL IV ONE (07:41)
[2019-10-14] MEDS ORDERED: fentaNYL (PF) 50 MCG/ML 2 ML AMP ONE (07:41)
[2019-10-14] MEDS ORDERED: SUCCINYLCHOLINE CHLORIDE 100 MG/5 ML SYR IV ONE (07:41)
[2019-10-14] MEDS ORDERED: ePHEDrine SULFATE/0.9% NACL/PF 50 MG/5 ML SYRINGE IV ONE (07:41)
[2019-10-14] MEDS ORDERED: MIDAZOLAM 2 MG/2 ML VIAL ONE (07:41)
[2019-10-14] MEDS ORDERED: KETOROLAC 30 MG/ML 1 ML VIAL ONE (07:41)
[2019-10-14] MEDS ORDERED: LIDOCAINE 1% INJ 10MG/ML (20 ML MDV) SQ ONE (08:06)
--- NOTE | 2019-10-14 08:15 | P.OP ---
Date of Procedure: 10/14/19 Preoperative Diagnosis: Postmenopausal bleeding Postoperative Diagnosis: Same with cervical mass Procedure(s) Performed: Dilation and curettage and excisional biopsy of cervical mass at 8:00 Anesthesia: DOMINIC Surgeon: Gavin West Estimated Blood Loss (ml): 5 Pathology: other (Uterine curettings and cervical mass) Condition: stable Disposition: same day Operative Findings: Pathology pending Description of Procedure: Patient was taken to the operating suite where a general anesthetic was found be adequate. She was prepped and draped in the normal sterile fashion and placed in the dorsal lithotomy position. Initially a weighted speculum was inserted into the vagina and anterior lip of cervix was identified and grasped with an Allis clamp. Immediately a small 1 cm lesion was noted at 8:00 on the cervix cervix was then dilated and sharp curettings were obtained. This tissue was collected and placed on Telfa and sent to pathology for evaluation. Once this was completed scissor was used to excise the mass and quarter percent Marcaine without epinephrine was injected in using interrupted 2-0 Vicryl the stump was closed with excellent hemostasis noted. All incidents were then removed. Sponge, lap, needle counts were all correct 2. Patient was then taken to the recovery room in stable and satisfactory condition. Plan - Discharge Summary Discharge Rx Participant: Yes New Discharge Prescriptions: New Ibuprofen [Motrin] 600 mg PO Q6HR PRN #30 tab PRN Reason: Pain No Action Citalopram Hydrobromide [CeleXA] 40 mg PO HS Cetirizine HCl [Zyrtec] 10 mg PO HS Nitroglycerin Sl Tabs [Nitrostat] 0.4 mg SUBLINGUAL Q5M PRN PRN Reason: Chest Pain Isosorbide Mononitrate ER [Imdur] 60 mg PO HS Pantoprazole Sodium [Protonix] 40 mg PO HS QUEtiapine [SEROquel] 50 mg PO HS Meclizine [Antivert] 12.5 mg PO DAILY PRN PRN Reason: DIZZINESS Ondansetron [Zofran ODT] 4 mg PO Q8HR PRN PRN Reason: Nausea Potassium 200 mg PO HS Parker-3 Fatty Acids/Fish Oil [Fish Oil 1,000 mg Softgel] 1 cap PO HS Garlic 1 tab PO HS Cyanocobalamin (Vitamin B-12) [Vitamin B-12] 1,000 mcg PO HS Cider Vinegar [Apple Cider Vinegar] 300 mg PO HS Cholecalciferol (Vitamin D3) [Vitamin D3] 2,000 unit PO HS Pravastatin Sodium [Pravachol] 80 mg PO HS #30 tab amLODIPine [Norvasc] 2.5 mg PO HS Losartan [Cozaar] 50 mg PO HS Clopidogrel [Plavix] 75 mg PO HS Butalbital/Acetaminophen [Butalbital/Acetaminophen 50-300 Tab] 1 tab PO DIRECTED PRN PRN Reason: migraines Discharge Medication List Citalopram Hydrobromide [CeleXA] 40 mg PO HS 05/06/14 [History] Cetirizine HCl [Zyrtec] 10 mg PO HS 08/17/15 [History] Isosorbide Mononitrate ER [Imdur] 60 mg PO HS 08/17/15 [History] Nitroglycerin Sl Tabs [Nitrostat] 0.4 mg SUBLINGUAL Q5M PRN 08/17/15 [History] Pantoprazole Sodium [Protonix] 40 mg PO HS 08/17/15 [History] Cholecalciferol (Vitamin D3) [Vitamin D3] 2,000 unit PO HS 05/27/19 [History] Cider Vinegar [Apple Cider Vinegar] 300 mg PO HS 05/27/19 [History] Cyanocobalamin (Vitamin B-12) [Vitamin B-12] 1,000 mcg PO HS 05/27/19 [History] Garlic 1 tab PO HS 05/27/19 [History] Meclizine [Antivert] 12.5 mg PO DAILY PRN 05/27/19 [History] Parker-3 Fatty Acids/Fish Oil [Fish Oil 1,000 mg Softgel] 1 cap PO HS 05/27/19 [History] Ondansetron [Zofran ODT] 4 mg PO Q8HR PRN 05/27/19 [History] Potassium 200 mg PO HS 05/27/19 [History] QUEtiapine [SEROquel] 50 mg PO HS 05/27/19 [History] Pravastatin Sodium [Pravachol] 80 mg PO HS #30 tab 05/29/19 [Rx] amLODIPine [Norvasc] 2.5 mg PO HS 08/21/19 [History] Butalbital/Acetaminophen [Butalbital/Acetaminophen 50-300 Tab] 1 tab PO DIRECTED PRN 10/10/19 [History] Clopidogrel [Plavix] 75 mg PO HS 10/10/19 [History] Losartan [Cozaar] 50 mg PO HS 10/10/19 [History] Ibuprofen [Motrin] 600 mg PO Q6HR PRN #30 tab 10/14/19 [Rx] Follow up Appointment(s)/Referral(s): Gavin West DO [Doctor of Osteopathic Medicine] - 2 Weeks Activity/Diet/Wound Care/Special Instructions: No heavy lifting today, limit stairs and driving, and pelvic rest. If any high temperatures, heavy bleeding, or severe pain call my office Discharge Disposition: HOME SELF-CARE
[2019-10-14 08:28] VITALS: TEMP 97.1
[2019-10-14 09:19] VITALS: RESP 18
[2019-10-14 09:35] VITALS: BP 114/68; PULSE 67
== END 2019-10-14 09:46 | disposition home or self-care (01) ==
LOC: OR 06:16
PROVIDERS: ATTEND Obstetrics & Gynecology
DX: N84.1 Polyp of cervix uteri (principal); N84.0 Polyp of corpus uteri; N95.0 Postmenopausal bleeding; I10 Essential (primary) hypertension; K21.9 Gastro-esophageal reflux disease without esophagitis; H91.90 Unspecified hearing loss, unspecified ear; E78.5 Hyperlipidemia, unspecified; L98.9 Disorder of the skin and subcutaneous tissue, unspecified; F17.210 Nicotine dependence, cigarettes, uncomplicated; Z85.41 Personal history of malignant neoplasm of cervix uteri; Z98.890 Other specified postprocedural states; Z79.899 Other long term (current) drug therapy; Z88.5 Allergy status to narcotic agent; Z88.6 Allergy status to analgesic agent; Z88.7 Allergy status to serum and vaccine; Z91.040 Latex allergy status; Z91.018 Allergy to other foods; Z79.02 Long term (current) use of antithrombotics/antiplatelets; Z86.73 Personal history of transient ischemic attack (TIA), and cerebral infarction without residual deficits; Z82.49 Family history of ischemic heart disease and other diseases of the circulatory system; Z80.0 Family history of malignant neoplasm of digestive organs
CPT/HCPCS: 81025; 85025; 58558; J2250; J2405; J2001; J3010; J1885; J1100; J0330; J2704; 88305

== ENCOUNTER → 2019-12-26 | Outpatient (CLI) | payer BC ==
--- NOTE | 2019-12-26 15:42 | CONS ---
CONSULTATION DATE OF SERVICE: 12/26/2019 This patient is a 54-year-old lady who has been evaluated in Sleep Center for multiple awakenings from sleep and excessive daytime sleepiness with naps and occasional snoring. HISTORY OF PRESENT ILLNESS/SLEEP-WAKE EVALUATION: Patient's usual sleep schedule is from 9 p.m. to 5:30 a.m. on weekdays, and on weekends from 10 p.m. to 2 or 3 p.m. She does have problems with falling asleep practically every night, watches TV in bedroom. She usually sleeps on the side position. According to her, she snores only occasionally, but she wakes up from sleep every hour without nocturia but with a dry mouth and episodes of heartburn. In the morning the patient wakes up tired and has difficulties paying attention, has problems with memory. No history of hypnagogic hallucinations, but questionable history of cataplexy with numbness of the face episodes and weakness, usually reaction PAST MEDICAL HISTORY: Positive for hypertension, TIA, acid reflux, hyperlipidemia, episodes of chest pain with a negative cardiac catheterization. MEDICATIONS: Norvasc, pravastatin, Zyrtec, Protonix, citalopram, isosorbide, Seroquel, losartan, Zofran, Plavix. Recently she was started on treatment with Vyvanse. SOCIAL HISTORY: Smoker of about half pack a day for 39 years. Negative for using alcohol or illicit drugs. REVIEW OF SYSTEMS: Difficulties initiating sleep, multiple awakenings from sleep, sleepiness during the day. Patient takes naps any time during the day, up to 4 times, usually in the afternoon. She does not feel refreshed after naps. Sometimes she may see dreams during naps. FAMILY HISTORY: Hypertension, heart problems, stroke, asthma, lung problems and emphysema in her dad, history of narcolepsy in her mother. Mental illness in her mother. Thyroid problems in her mother. PHYSICAL EXAMINATION: GENERAL: A pleasant lady without distress. VITAL SIGNS: BP 111/68, HR 88, RR 16, height 5 feet 5 inches, weight 232, body mass index 38.6, temperature 97.9, oxygen saturation at room air 98%. HEENT: PERRLA, EOMI. Evaluation of oropharynx showed tongue protrudes midline. Extremely low position of soft palate. Mallampati IV. NECK: Supple. No JVD. Thyroid is not palpable. Wide neck; 16-1/2 inches in circumference. LUNGS: Clear to percussion and to auscultation. Good air exchange. No wheezing or rhonchi. HEART: S1, S2 regular. No murmurs, gallops or rubs. ABDOMEN: Obese. EXTREMITIES: No clubbing or cyanosis. PROFESSIONAL DEVELOPMENT MANAGER: Awake, alert, and oriented X3. Cranial nerves 2 to 7 intact. There is no fasciculation or atrophy. noted. No focal deficits observed. IMPRESSION: 1. Occasional snoring, multiple awakenings from sleep every hour, extremely low position of soft palate, wide neck, obesity, sleepiness; obstructive sleep apnea- hypopnea syndrome. 2. Sleepiness with episodes of naps up to 4 times a day. Questionable history of cataplexy. Differential diagnosis includes narcolepsy. 3. Obesity; body mass index 38.6. 4. Hypertension. 5. Acid reflux. 6. Hyperlipidemia. 7. History of transient ischemic attack 6 years ago. PLAN: 1. Polysomnography for evaluation of patient's breathing during sleep with a following multiple sleep latency test. 2. CPAP/BiPAP titration if sleep study confirms obstructive sleep apnea-hypopnea syndrome. 3. Preferable position during sleep on the side. 4. No driving if patient feels any sleepiness. 5. I will see patient for follow-up visit to explain results of testing and following plan. Thank you very much for referring this patient for consultation. Sincerely, Edgar Roche MD, PhD, FAASM Diplomat of [place] [employer] [employer] Salesperson of [facility] [place] MMODL / DORYN: [id number] /
== END | disposition home or self-care (01) ==
LOC: SLEEP 10:44
PROVIDERS: ATTEND Internal Medicine
DX: G47.33 Obstructive sleep apnea (adult) (pediatric) (principal); E66.9 Obesity, unspecified; Z68.38 Body mass index [BMI] 38.0-38.9, adult; I10 Essential (primary) hypertension; K21.9 Gastro-esophageal reflux disease without esophagitis; E78.5 Hyperlipidemia, unspecified; F17.210 Nicotine dependence, cigarettes, uncomplicated; Z86.73 Personal history of transient ischemic attack (TIA), and cerebral infarction without residual deficits; Z86.69 Personal history of other diseases of the nervous system and sense organs; Z79.899 Other long term (current) drug therapy
CPT/HCPCS: 99211

== ENCOUNTER → 2020-02-14 | Outpatient (CLI) | payer BC ==
[2020-02-14 15:15] LABS: African American GFR (CKD) 97.6 (60.0-200.0); Albumin 4.2 g/dL (3.80-4.90); Albumin/Globulin Ratio 1.91 (1.60-3.17); Anion Gap 5.1 mmol/L (4.00-12.00); BUN/Creat Ratio 8.75 Ratio (12.00-20.00); Calcium 9.5 mg/dL (8.7-10.3); Carbon Dioxide 30.9 mmol/L (21.6-31.8); Globulin 2.2 g/dL (1.6-3.3); Non-African American GFR(CKD) 84.2 (60.0-200.0); Potassium 3.6 mmol/L (3.5-5.5); Total Bilirubin 0.5 mg/dL (0.3-1.2); Total Protein 6.4 g/dL (6.2-8.2)
== END | disposition home or self-care (01) ==
LOC: LABWHC1 10:55
PROVIDERS: ATTEND Nurse Practitioner
DX: K59.09 Other constipation (principal)
CPT/HCPCS: 36415; 80053

== ENCOUNTER → 2020-03-04 | Outpatient (CLI) | payer BC ==
--- NOTE | 2020-03-05 07:40 | US ---
EXAMINATION TYPE: US abdomen complete DATE OF EXAM: 03/04/2020 COMPARISON: None CLINICAL HISTORY: 54-year-old female R10.9 Unspecified abdominal pain. Intermittent RUQ pain since Fe bruary when patient fell off her porch TECHNIQUE: Multiple sonographic images of the abdomen are obtained. FINDINGS: EXAM MEASUREMENTS: Liver Length: 17.5 cm Gallbladder Wall: 0.2 cm CBD: 0.4 cm Spleen: 10.0 cm Right Kidney: 10.1 x 4.3 x 4.3 cm Left Kidney: 10.2 x 4.8 x 4.9 cm Nozzle And Sleeve Worker notes:Difficult and limited study due to patient body habitus Pancreas: visualized portions wnl, limited by overlying midline bowel gas Liver: Very echogenic and attenuating. This secondarily limits assessment for focal lesions. Gallbladder: wnl Evidence for sonographic Forte's sign: yes CBD: visualized portions wnl, limited by overlying bowel gas Spleen: wnl Right Kidney: wnl Left Kidney: wnl Upper IVC: wnl Abd Aorta: visualized portions wnl, limited by overlying midline bowel gas IMPRESSION: 1. Severe hepatic steatosis. This secondarily limits assessment for focal lesions. 2. No gallstones or biliary ductal dilatation. 3. However, sonographic Forte sign is reported positive. This may reflect referred pain. If further imaging evaluation of the gallbladder is desired, HIDA scan can be considered.
== END | disposition home or self-care (01) ==
LOC: RADUSWWP 15:38
PROVIDERS: ATTEND Internal Medicine
DX: K76.0 Fatty (change of) liver, not elsewhere classified (principal)
CPT/HCPCS: 76700

== ENCOUNTER → 2020-03-26 | Day surgery (SDC) | payer BC ==
[2020-03-24 10:29] VITALS: BMI 35.5
[~2020-03-26] MED LIST changes: -HYDROmorphone 0.5 MG/0.5 ML SYRINGE IVP PRN; +LACTATED RINGERS 1,000 ML IV ONE; +LIDOCAINE 1% (10MG/ML) FOR IV START INTRADERMA ONE; -LIDOCAINE 1% (10MG/ML) FOR IV START INTRADERMA PRN; +LIDOCAINE 1% INJ 10MG/ML (20 ML MDV) ONE; -MIDAZOLAM 2 MG/2 ML VIAL IV PRN; +PROPOFOL 10 MG/ML 20 ML VIAL IV ONE; -Pre Op ABX Message 1 EACH MISC MISCELLANE ONE
[2020-03-26 11:16] VITALS: TEMP 98.5
--- NOTE | 2020-03-26 12:16 | P.PCN ---
Date of Procedure: 03/26/20 Description of Procedure: BRIEF HISTORY: Patient is a 54-year-old female presenting for outpatient EGD for evaluation of right upper quadrant pain. Patient has a history of irritable bowel syndrome with constipation. Currently on laxative therapy. She has been having intermittent right upper quadrant abdominal pain with Forte sign positive on ultrasound. PROCEDURE PERFORMED: Esophagogastroduodenoscopy with biopsy. PREOPERATIVE DIAGNOSIS: Right upper quadrant pain, history of peptic ulcer disease as per report by the patient. ESTIMATED BLOOD LOSS: Minimal. IV sedation per anesthesia. PROCEDURE: After informed consent was obtained, the patient was brought into the endoscopy unit. IV sedation was administered by Anesthesia under continuous monitoring. Initially the Olympus GIF-190 video endoscope was inserted into the mouth. Esophagus intubated without any difficulty. It was gradually advanced into the stomach and duodenum and carefully examined. The bulb and the second part of the duodenum appeared normal, with biopsies taken. The scope at this time was withdrawn to the stomach, adequately insufflated with air, and upon careful examination, mucosa of the antrum, body, cardia and the fundus appeared normal, except for some mild scattered erythema in the antrum and body suggestive of mild gastritis with biopsies of the antrum and body taken. The scope was then withdrawn into the esophagus. The GE junction was located at 35 cm from the incisors, and biopsied. 1 cm small hiatal hernia noted. The esophagus appeared normal. There were no erosions or ulcerations seen and the patient tolerated the procedure well. IMPRESSION: 1. Mild gastritis. 2. Biopsies of the duodenum, antrum and body and GE junction. RECOMMENDATIONS: The findings of this examination were discussed with the patient and her family. Okay to resume diet. Okay to resume medications. Await pathology from biopsies. Follow up in GI clinic as previously scheduled.
[2020-03-26 12:19] VITALS: BP 104/69; PULSE 83; RESP 14
== END ==
LOC: ORWHC2ENDO 10:51
PROVIDERS: ATTEND Internal Medicine
DX: K21.0 Gastro-esophageal reflux disease with esophagitis (principal); K29.50 Unspecified chronic gastritis without bleeding; K58.9 Irritable bowel syndrome, unspecified; K44.9 Diaphragmatic hernia without obstruction or gangrene; I10 Essential (primary) hypertension; I25.10 Atherosclerotic heart disease of native coronary artery without angina pectoris; E78.5 Hyperlipidemia, unspecified; F17.200 Nicotine dependence, unspecified, uncomplicated; F41.9 Anxiety disorder, unspecified; G47.411 Narcolepsy with cataplexy; H91.90 Unspecified hearing loss, unspecified ear; Z87.11 Personal history of peptic ulcer disease; Z91.018 Allergy to other foods; Z88.5 Allergy status to narcotic agent; Z91.040 Latex allergy status; Z88.7 Allergy status to serum and vaccine; Z88.6 Allergy status to analgesic agent; Z88.8 Allergy status to other drugs, medicaments and biological substances; Z79.899 Other long term (current) drug therapy; Z98.890 Other specified postprocedural states; Z86.73 Personal history of transient ischemic attack (TIA), and cerebral infarction without residual deficits; Z85.41 Personal history of malignant neoplasm of cervix uteri; Z79.01 Long term (current) use of anticoagulants
CPT/HCPCS: 88305; 43239; J2001; J2704

== ENCOUNTER → 2020-05-11 | Outpatient (CLI) | payer BC ==
--- NOTE | 2020-05-11 15:54 | NM ---
Nuclear medicine hepatobiliary scan. HISTORY: Pain. DOSAGE: The patient received 8 ounces of ensure plus and 4.2 mCi of Technetium 99m Choletec. FINDINGS: There is normal hepatic extraction. The gallbladder is seen by 10 minutes. There is bilia ry to bowel clearance by 50 minutes. Ejection fraction is 93%. IMPRESSION: 1. Normal radiotracer filling of the gallbladder with no diagnostic evidence of cholecystitis. 2. Ejection fraction 93% can occasionally be associated with hyperdynamic gallbladder. Correlate clin ically.
== END | disposition home or self-care (01) ==
LOC: RADNMMAIN 12:58
PROVIDERS: ATTEND Internal Medicine
DX: R10.11 Right upper quadrant pain (principal); Z88.6 Allergy status to analgesic agent; Z88.7 Allergy status to serum and vaccine
CPT/HCPCS: 78226; A9537

== ENCOUNTER → 2020-06-19 | Outpatient (CLI) | payer BC | END | disposition home or self-care (01) | LOC: LABPAT 15:15 | PROVIDERS: ATTEND Student in an Organized Health Care Education/Training Program | DX: Z01.812 Encounter for preprocedural laboratory examination (principal); Z20.828 Contact with and (suspected) exposure to other viral communicable diseases | CPT/HCPCS: U0003; C9803 ==

== ENCOUNTER 2020-06-26 08:49 | Day surgery (SDC) | payer BC ==
[2020-06-24 10:44] VITALS: BMI 35.5
[~2020-06-26 08:49] MED LIST changes: +DEXAMETHASONE SOD PHOSPHATE 4 MG/ML 1 ML VIAL IV ONE; +HEPARIN SODIUM,PORCINE 5,000 UNIT/ML 1 ML VIAL SQ PRN; -LACTATED RINGERS 1,000 ML IV ONE; -LIDOCAINE 1% (10MG/ML) FOR IV START INTRADERMA ONE; -LIDOCAINE 1% INJ 10MG/ML (20 ML MDV) ONE; +MIDAZOLAM 2 MG/2 ML VIAL IV PRN; +ONDANSETRON 4 MG/2 ML VIAL IVP ONE; -PROPOFOL 10 MG/ML 20 ML VIAL IV ONE; +SCOPOLAMINE 1.5MG/72HR PATCH TRANSDERM ONE
[2020-06-26] MEDS ORDERED: LIDOCAINE 1% (10MG/ML) FOR IV START INTRADERMA ONE (09:18)
[2020-06-26 09:19] VITALS: RESP 16
[2020-06-26 09:38] LABS: ALT 22 U/L (4-34); AST 22 U/L (14-36); African American GFR (CKD) >90 (>60 ml/min/1.73 sqM); Alkaline Phosphatase 98 U/L (38-126); Anion Gap 6 mmol/L; Blood Urea Nitrogen 13 mg/dL (7-17); Calcium 9.1 mg/dL (8.4-10.2); Carbon Dioxide 28 mmol/L (22-30); Chloride 104 mmol/L (98-107); Glucose 128 mg/dL (74-99); Non-African American GFR(CKD) 88 (>60 ml/min/1.73 sqM); Potassium 3.7 mmol/L (3.5-5.1); Sodium 138 mmol/L (137-145); Total Bilirubin 0.7 mg/dL (0.2-1.3); Total Protein 6.9 g/dL (6.3-8.2)
[2020-06-26] MEDS ORDERED: PROPOFOL 10 MG/ML 20 ML VIAL IV ONE (09:40)
[2020-06-26] MEDS ORDERED: SUCCINYLCHOLINE CHLORIDE 100 MG/5 ML SYR IV ONE (09:40)
[2020-06-26] MEDS ORDERED: LIDOCAINE 1% INJ 10MG/ML (20 ML MDV) ONE (09:40)
[2020-06-26] MEDS ORDERED: NEOSTIGMINE 1 MG/ML 10 ML VIAL ONE (09:40)
[2020-06-26] MEDS ORDERED: fentaNYL (PF) 50 MCG/ML 2 ML AMP ONE (09:40)
[2020-06-26] MEDS ORDERED: ROCURONIUM 10 MG/ML (10 ML VIAL) IV ONE (09:40)
[2020-06-26] MEDS ORDERED: MIDAZOLAM 2 MG/2 ML VIAL ONE (09:40)
[2020-06-26] MEDS ORDERED: GLYCOPYRROLATE 0.2 MG/ML 2 ML VIAL ONE (09:40)
[2020-06-26] MEDS ORDERED: ePHEDrine SULFATE/0.9% NACL/PF 50 MG/5 ML SYRINGE IV ONE (09:40)
[2020-06-26] MEDS ORDERED: BUPIVACAINE-EPI 0.5%-1:200,000 10 ML VIAL SQ ONE (10:01)
[2020-06-26] MEDS ORDERED: LACTATED RINGERS 1,000 ML IV ONE (10:25)
[2020-06-26 11:00] VITALS: TEMP 97
--- NOTE | 2020-06-26 11:10 | P.OP ---
Date of Procedure: 06/26/20 Preoperative Diagnosis: Symptomatic cholelithiasis Postoperative Diagnosis: Same Procedure(s) Performed: Laparoscopic cholecystectomy Anesthesia: MAC Surgeon: Suraj Herrera Estimated Blood Loss (ml): 5 Condition: stable Disposition: same day Description of Procedure: Patient is brought operative suite remained in supine position underwent general endotracheal anesthesia per Department of anesthesia timeout performed correct patient correct procedure correct site was verified recent incision was made infraumbilical carried down to the fascia which was incised in usual fashion under direct visualization a 12 mm port was placed in the abdomen was insufflated no injuries were noted 3 separate 5 mm ports are placed in the right upper quadrant the patient was placed in reverse Trendelenburg right side up the gallbladder is grasped and retracted cephalad and the cystic duct and cystic artery were skeletonized critical view was obtained the cystic duct and cystic artery were then duly clipped and ligated the gallbladder was then removed from the liver bed using Bovie electrocautery. There was a small amount of oozing from the liver bed and surgical snow hemostatic agent was placed hemostasis was noted the gallbladder was removed through the 12 mm port site with an Endo Catch bag. The liver bed was irrigated and hemostasis was once again noted the fascia at the 12 mm port site was closed with 2 0 Vicryl interrupted stitchs. All ports removed under direct visualization hemostasis was noted the abdomen was desufflated and the skin was closed with 4-0 Monocryl subcuticular stitches and skin glue patient tolerated the procedure well there are no apparent complications Plan - Discharge Summary Discharge Rx Participant: No New Discharge Prescriptions: New Docusate [Colace] 100 mg PO DAILY #10 capsule HYDROcodone/APAP 5-325MG [[place] 5-325] 1 tab PO Q4HR PRN 3 Days #18 tab PRN Reason: Pain No Action Citalopram Hydrobromide [CeleXA] 40 mg PO HS Cetirizine HCl [Zyrtec] 10 mg PO HS Nitroglycerin Sl Tabs [Nitrostat] 0.4 mg SUBLINGUAL Q5M PRN PRN Reason: Chest Pain Isosorbide Mononitrate ER [Imdur] 60 mg PO HS Pantoprazole Sodium [Protonix] 40 mg PO HS Ondansetron [Zofran ODT] 4 mg PO Q8HR PRN PRN Reason: Nausea Potassium 200 mg PO HS Pravastatin Sodium [Pravachol] 80 mg PO HS #30 tab amLODIPine [Norvasc] 2.5 mg PO HS Losartan [Cozaar] 50 mg PO HS Clopidogrel [Plavix] 75 mg PO HS QUEtiapine FUMARATE 100 mg PO HS Linaclotide [Linzess] 290 mcg PO PC-LUNCH traMADol HCl [Ultram] 50 mg PO BID Methylphenidate HCl [Ritalin] 10 mg PO AC-TID Discharge Medication List Citalopram Hydrobromide [CeleXA] 40 mg PO HS 05/06/14 [History] Cetirizine HCl [Zyrtec] 10 mg PO HS 08/17/15 [History] Isosorbide Mononitrate ER [Imdur] 60 mg PO HS 08/17/15 [History] Nitroglycerin Sl Tabs [Nitrostat] 0.4 mg SUBLINGUAL Q5M PRN 08/17/15 [History] Pantoprazole Sodium [Protonix] 40 mg PO HS 08/17/15 [History] Ondansetron [Zofran ODT] 4 mg PO Q8HR PRN 05/27/19 [History] Potassium 200 mg PO HS 05/27/19 [History] Pravastatin Sodium [Pravachol] 80 mg PO HS #30 tab 05/29/19 [Rx] amLODIPine [Norvasc] 2.5 mg PO HS 08/21/19 [History] Clopidogrel [Plavix] 75 mg PO HS 10/10/19 [History] Losartan [Cozaar] 50 mg PO HS 10/10/19 [History] Linaclotide [Linzess] 290 mcg PO PC-LUNCH 03/24/20 [History] QUEtiapine FUMARATE 100 mg PO HS 03/24/20 [History] Methylphenidate HCl [Ritalin] 10 mg PO AC-TID 06/24/20 [History] traMADol HCl [Ultram] 50 mg PO BID 06/24/20 [History] Docusate [Colace] 100 mg PO DAILY #10 capsule 06/26/20 [Rx] HYDROcodone/APAP 5-325MG [[place] 5-325] 1 tab PO Q4HR PRN 3 Days #18 tab 06/26/20 [Rx] Follow up Appointment(s)/Referral(s): Suraj Herrera DO [Doctor of Osteopathic Medicine] - 2 Weeks Patient Instructions/Handouts: *[facility] - Laparoscopic Cholecystectomy Discharge Instructions, *[facility] - (Anesthesia) Discharge Instructions Outpa tient Surgery, *[facility] - Scopalamine Patch Instructions Discharge Disposition: HOME SELF-CARE
[2020-06-26] MEDS: fentaNYL (PF) 50 MCG/ML 2 ML AMP IV PRN ×2 (11:20→11:28)
[2020-06-26] MEDS ORDERED: HYDROcodone/APAP 5-325MG 1 EACH TAB PO ONE (12:12)
[2020-06-26] MEDS ORDERED: HYDROcodone/APAP 5-325MG 1 EACH TAB ONE (12:13)
[2020-06-26 12:34] VITALS: BP 166/87; PULSE 72
[2020-06-26] MEDS ORDERED: ONDANSETRON 4 MG/2 ML VIAL IVP ONE (12:41)
[2020-06-26] MEDS ORDERED: ONDANSETRON 4 MG/2 ML VIAL ONE (12:42)
== END 2020-06-26 13:14 | disposition home or self-care (01) ==
LOC: OR 08:49
PROVIDERS: ATTEND Student in an Organized Health Care Education/Training Program
DX: K80.10 Calculus of gallbladder with chronic cholecystitis without obstruction (principal); I10 Essential (primary) hypertension; E78.00 Pure hypercholesterolemia, unspecified; G43.909 Migraine, unspecified, not intractable, without status migrainosus; D35.00 Benign neoplasm of unspecified adrenal gland; E78.5 Hyperlipidemia, unspecified; F17.210 Nicotine dependence, cigarettes, uncomplicated; F32.9 Major depressive disorder, single episode, unspecified; I20.9 Angina pectoris, unspecified; Z86.73 Personal history of transient ischemic attack (TIA), and cerebral infarction without residual deficits; Z79.02 Long term (current) use of antithrombotics/antiplatelets; Z79.899 Other long term (current) drug therapy; Z88.5 Allergy status to narcotic agent; Z91.040 Latex allergy status; Z80.0 Family history of malignant neoplasm of digestive organs; Z82.5 Family history of asthma and other chronic lower respiratory diseases; Z82.49 Family history of ischemic heart disease and other diseases of the circulatory system
CPT/HCPCS: 88304; 80053; 47562; J2250; J1644; J1100; J2710; J0690; J2405; J2001; J3010; J0330; J2704

== ENCOUNTER → 2020-09-24 | Outpatient (CLI) | payer BC ==
--- NOTE | 2020-09-24 15:59 | SFUN ---
SLEEP CENTER FOLLOW UP NOTE DATE OF SERVICE: 09/24/2020 A 55-year-old lady has been followed in Sleep Center for treatment of mild obstructive sleep apnea-hypopnea syndrome and significant excessive daytime sleepiness; possible narcolepsy. The patient is using her CPAP equipment every night, but she does not feel improvements of her alertness during the day while using her CPAP versus the situation when she does not use her CPAP. She was started on daytime stimulants by Dr. Griffith and Dr. Dahl and presently she is on Adderall 30 mg in the morning and if necessary, she takes additional dose of 10 mg of Adderall in the middle of the day. With this regimen, patient feels much better and does not feel sleepy during the day again on this medication. [place] Sleepiness Scale without medications 21; on medications, she wrote zero. I checked patient's CPAP unit. It is an automatic regimen. Range of the pressure 5-15 with average pressure 11 cm of water. The patient is using CPAP equipment every night 30 out of 30 nights and 22 out of 30 nights for more than 4 hours with average usage 5.4 hours per night. Leak is 11 L/minute which is normal. Apnea-hypopnea index is 1.1, which is normal. MEDICATIONS: Other medications, Plavix 75 mg once a day, Protonix 40 mg once a day, Norvasc 2.5 mg once a day, losartan 50 mg once a day, Seroquel 100 mg once a day, Zyrtec 10 mg once a day, Celexa 40 mg once a day, isosorbide 80 mg once a day. PHYSICAL EXAMINATION: GENERAL: Patient in no distress. VITAL SIGNS: BP 122/72, HR 79, RR 15, height 5 feet 6 inches, weight 220, temperature 97.9, oxygen saturation at room air 97%. HEENT: PERRLA, EOMI, evaluation of oropharynx showed tongue protrudes midline. NECK: Supple, no JVD. Thyroid is not palpable. LUNGS: Clear to percussion and to auscultation. Good air exchange. No wheezing or rhonchi. HEART: S1, S2 regular. No murmurs, gallops, or rubs. ABDOMEN: Obese. EXTREMITIES: No clubbing or cyanosis. RADIAGRAPH OPERATOR: Awake, alert, and oriented X3. Cranial nerves 2 to 7 intact. There is no fasciculation or atrophy. noted. No focal deficits observed. IMPRESSION: 1. Very mild obstructive sleep apnea-hypopnea syndrome with apnea-hypopnea index 5.2, and without significant oxygen desaturation. The patient demonstrated good compliance with treatment, but does not feel any improvements of her alertness while using her CPAP. 2. Significant excessive daytime sleepiness, confirmed by multiple sleep latency test with mean sleep latency 6.8 minutes and 3 sleep onset REM periods documented indicated narcolepsy. 3. History of severe periodic limb movements. 4. Obesity. 5. Hypertension. 6. Acid reflux. 7. Hyperlipidemia. 8. History of transient ischemic attack 6 years ago. PLAN: 1. The situation when her apnea-hypopnea index is in extremely low range only 5.2, and oxygen level was below normal only for 0.3 minutes, the patient does not feel any improvements with her alertness during the day on CPAP and improvements on her sleep while on CPAP. Probably treatment with CPAP is not necessary. The patient insisting that she does not like CPAP unit sleep with less quality on CPAP than without CPAP. The patient is planning to return her CPAP equipment, but I will let her make decision by herself on the basis of her feelings. 2. The patient should continue to take low dose of daytime stimulants to prevent excessive daytime sleepiness. 3. Extreme precautions related to driving. No driving if feeling any sleepiness. 4. Patient does not complain of any significant amount of leg movements. 5. Losing weight. 6. Sleep hygiene with regular time in bed for 8 hours. 7. Daytime naps permitted. Thank you very much for allowing me to participate in management of your patient. Sincerely, Edgar Roche MD, PhD, FAASM Diplomat of [place] [employer] [employer] Bucket Hooker [facility] [place] MMODL / IJN: [id number] /
== END ==
LOC: SLEEP 14:25
PROVIDERS: ATTEND Internal Medicine
DX: G47.33 Obstructive sleep apnea (adult) (pediatric) (principal); G47.419 Narcolepsy without cataplexy; E66.9 Obesity, unspecified; I10 Essential (primary) hypertension; E78.5 Hyperlipidemia, unspecified; K21.9 Gastro-esophageal reflux disease without esophagitis; Z86.73 Personal history of transient ischemic attack (TIA), and cerebral infarction without residual deficits

== ENCOUNTER → 2021-04-08 | Outpatient (CLI) | payer OTHER ==
--- NOTE | 2021-04-08 17:52 | SFUN ---
SLEEP CENTER FOLLOW UP NOTE DATE OF SERVICE: 04/08/2021 This 55-year-old lady has been followed in Sleep Center for treatment of narcolepsy. The patient continues to feel sleepiness during the day, has occasional episodes of cataplexy. [place] Sleepiness Scale today is in very high range at 19. Previously the patient was treated with Adderall, but that recently was stopped and the patient feels very sleepy. She was started on Vyvanse, but according to the patient, it does not help with her sleepiness. MEDICATIONS: 1. Vyvanse 70 mg once a day. 2. Singulair. 3. Celexa 40 mg once a day. 4. Isosorbide 80 mg once a day. 5. Losartan 75 mg once a day. 6. Protonix 40 mg once a day. 7. Pravastatin. 8. Seroquel. PHYSICAL EXAMINATION: GENERAL: Pleasant patient in no distress. VITAL SIGNS: BP 126/67, HR 98, RR 15, height 5 feet 4-1/2 inches, weight 214.4, body mass index 36.3, temperature 97.1, oxygen saturation at room air 97%. HEENT: PERRLA, EOMI, evaluation of oropharynx showed tongue protrudes midline. NECK: Supple, no JVD. Thyroid is not palpable. LUNGS: Clear to percussion and to auscultation. Good air exchange. No wheezing or rhonchi. HEART: S1, S2 regular. No murmurs, gallops, or rubs. ABDOMEN: Obese. EXTREMITIES: No clubbing or cyanosis. CLINICAL TECH: Awake, alert, and oriented X3. Cranial nerves 2 to 7 intact. There is no fasciculation or atrophy. noted. No focal deficits observed. IMPRESSION: 1. 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 Mean sleep latency 6.8 minutes. Sleep-onset REM periods. 2. Very minimal abnormalities of respirations. Apnea-hypopnea index 5.2. No improvements with usage of CPAP. 3. History of severe periodic limb movements. 4. Obesity. 5. Hypertension. 6. Acid reflux. 7. Hyperlipidemia. 8. History of transient ischemic attack 6 years ago. PLAN: 1. I will start the patient on modafinil 200 mg in the morning with possibly increasing dose to 400 mg in the morning. 2. Follow-up visit in several weeks to evaluate clinical response on treatment and following the plan, possibly adding Adderall to the treatment. 3. Sleep hygiene with regular time in bed for at least 7-1/2 to 8 hours. 4. No driving if feeling sleepiness. 5. Losing weight. 6. Daytime naps permitted. Thank you very much for allowing me to participate in the management of your patient. Sincerely, Edgar Roche MD, PhD, FAASM Diplomat of [place] [employer] Sleep Medicine [employer] of [place] [employer] Plate Cutter of [facility] [place] MMODL / DORYN: [id number] /
== END ==
LOC: SLEEP 13:48
PROVIDERS: ATTEND Internal Medicine
DX: G47.411 Narcolepsy with cataplexy (principal); G47.61 Periodic limb movement disorder; R06.89 Other abnormalities of breathing; E66.9 Obesity, unspecified; I10 Essential (primary) hypertension; K21.9 Gastro-esophageal reflux disease without esophagitis; E78.5 Hyperlipidemia, unspecified; F17.200 Nicotine dependence, unspecified, uncomplicated; Z99.89 Dependence on other enabling machines and devices; Z86.73 Personal history of transient ischemic attack (TIA), and cerebral infarction without residual deficits; Z68.36 Body mass index [BMI] 36.0-36.9, adult; Z79.899 Other long term (current) drug therapy; Z91.018 Allergy to other foods; Z88.5 Allergy status to narcotic agent; Z91.040 Latex allergy status; Z88.7 Allergy status to serum and vaccine; Z88.6 Allergy status to analgesic agent

== ENCOUNTER → 2021-04-29 | Outpatient (CLI) | payer OTHER ==
--- NOTE | 2021-04-29 21:54 | SFUN ---
SLEEP CENTER FOLLOW UP NOTE DATE OF SERVICE: 04/29/2021 This 55-year-old lady has been followed in Sleep Center for treatment of narcolepsy. During the previous visit, the patient was started on treatment with modafinil 200 mg with option to increase the dose up to 400 mg. She tried 200 mg and increased the dose to 400 mg, but she did not feel any improvements on modafinil. According to her, she feels more sleepy while using medication. [place] Sleepiness Scale today is extremely high at 20. The patient was on Vyvanse, but did not feel better with that, and medication was stopped. CURRENT MEDICATIONS: Singulair, Celexa 40 mg once a day, isosorbide 80 mg once a day, losartan 75 mg once a day, Protonix 40 mg once a day, pravastatin, Seroquel. PHYSICAL EXAMINATION: GENERAL: Pleasant patient in no distress. VITAL SIGNS: BP 108/75, HR 90, RR 18, height 5 feet 4 inches, weight 216.8, temperature 97.4, oxygen saturation at room air 98%. Body mass index 37.0. HEENT: PERRLA, EOMI, evaluation of oropharynx showed tongue protrudes midline. NECK: Supple, no JVD. Thyroid is not palpable. LUNGS: Clear to percussion and to auscultation. Good air exchange. No wheezing or rhonchi. HEART: S1, S2 regular. No murmurs, gallops, or rubs. ABDOMEN: Soft and nontender. Bowel sounds are present. No organomegaly appreciated. EXTREMITIES: No clubbing or cyanosis. CARDIAC REHAB NURSE: Awake, alert, and oriented X3. Cranial nerves 2 to 7 intact. There is no fasciculation or atrophy. noted. No focal deficits observed. IMPRESSION: 1. Narcolepsy, type 1, with cataplexy, confirmed by multiple sleep latency test. Mean sleep latency 6.8 minutes. Sleep-onset REM periods documented. 2. Very minimal abnormalities of respiration. Apnea-hypopnea index 5.2. No improvements with usage of CPAP. 3. Obesity. 4. History of periodic limb movements. 5. Hypertension. 6. Acid reflux. 7. Hyperlipidemia. 8. History of transient ischemic attack 6 years ago. PLAN: 1. Modafinil was canceled. 2. Patient will be started on Adderall 20 mg in the morning and 20 mg in the afternoon. Previously she was treated with Adderall and feels well with the medication. Doses were higher than dose. 3. Sleep hygiene with regular time in bed for at least 7-1/2 to 8 hours. 4. Daytime naps permitted. 5. Losing weight. 6. No driving if feeling sleepiness. Thank you very much for allowing me to participate in the management of your patient. Sincerely, Edgar Roche MD, PhD, FAASM Diplomat of [employer] Sleep Medicine Board of [employer] Social Psychologist of [facility] [place] MMODL / IJN: [id number] /
== END ==
LOC: SLEEP 15:04
PROVIDERS: ATTEND Internal Medicine
DX: G47.411 Narcolepsy with cataplexy (principal); G47.61 Periodic limb movement disorder; I10 Essential (primary) hypertension; E66.9 Obesity, unspecified; K21.9 Gastro-esophageal reflux disease without esophagitis; E78.5 Hyperlipidemia, unspecified; F17.200 Nicotine dependence, unspecified, uncomplicated; Z86.73 Personal history of transient ischemic attack (TIA), and cerebral infarction without residual deficits; Z99.89 Dependence on other enabling machines and devices; Z68.37 Body mass index [BMI] 37.0-37.9, adult; Z88.5 Allergy status to narcotic agent; Z88.6 Allergy status to analgesic agent; Z91.040 Latex allergy status; Z88.7 Allergy status to serum and vaccine; Z91.018 Allergy to other foods

== ENCOUNTER → 2021-07-29 | Outpatient (CLI) | payer OTHER ==
--- NOTE | 2021-07-29 17:10 | SFUN ---
SLEEP CENTER FOLLOW UP NOTE DATE OF SERVICE: 07/29/2021 This 55-year-old lady has been followed in Sleep Center for treatment of narcolepsy. Previously the patient was treated with modafinil. It did not work for her. Then we started treatment on Adderall. At the present time she is on treatment with Adderall 20 mg twice a day. It makes her condition better, but she still continues to feel sleepiness. Some days she wakes up in the morning, takes her medication, and then falls asleep again. MEDICATIONS: 1. Adderall 20 mg twice a day. 2. Celexa 40 mg once a day. 3. Clonidine twice a day. 4. Amlodipine once a day. 5. Losartan 75 mg once a day. 6. Protonix 40 mg once a day. 7. Pravastatin. 8. Isosorbide. 9. Meclizine. 10.Metamucil. 11.Seroquel. PHYSICAL EXAMINATION: GENERAL: Pleasant patient in no distress. VITAL SIGNS: BP 111/69, HR around 100, RR 15, height 5 feet 4 inches, weight 212, body mass index 36.3, temperature 98.1, oxygen saturation at room air 99%. HEENT: PERRLA, EOMI, evaluation of oropharynx showed tongue protrudes midline. NECK: Supple, no JVD. Thyroid is not palpable. LUNGS: Clear to percussion and to auscultation. Good air exchange. No wheezing or rhonchi. HEART: S1, S2 regular. No murmurs, gallops, or rubs. ABDOMEN: Obese. EXTREMITIES: No clubbing or cyanosis. RETAIL STORE CLERK: Awake, alert, and oriented X3. Cranial nerves 2 to 7 intact. There is no fasciculation or atrophy. noted. No focal deficits observed. IMPRESSION: 1. Narcolepsy, type 1, with cataplexy. 2. Obesity. 3. History of periodic limb movements. 4. Hypertension. 5. Acid reflux. 6. Hyperlipidemia. 7. History of transient ischemic attack 6 years ago. PLAN: 1. I will increase dose of Adderall to 20 mg 3 times a day. 2. Sleep hygiene with regular time in bed for 8 hours. 3. No driving if feeling any sleepiness. Patient promised to follow this recommendation. 4. Daytime naps permitted. Thank you very much for allowing me to participate in the management of your patient. Sincerely, Edgar Roche MD, PhD, FAASM Diplomat of [place] [employer] Sleep Medicine Board of [place] [employer] Respiratory Technician of [facility] [place] MIL / BRANDON: [id number] /
== END ==
LOC: SLEEP 14:59
PROVIDERS: ATTEND Internal Medicine
DX: G47.411 Narcolepsy with cataplexy (principal); E66.9 Obesity, unspecified; G47.61 Periodic limb movement disorder; I10 Essential (primary) hypertension; K21.9 Gastro-esophageal reflux disease without esophagitis; E78.5 Hyperlipidemia, unspecified; F17.200 Nicotine dependence, unspecified, uncomplicated; Z86.73 Personal history of transient ischemic attack (TIA), and cerebral infarction without residual deficits; Z79.899 Other long term (current) drug therapy; Z68.36 Body mass index [BMI] 36.0-36.9, adult; Z88.5 Allergy status to narcotic agent; Z91.040 Latex allergy status; Z88.6 Allergy status to analgesic agent; Z88.7 Allergy status to serum and vaccine; Z91.018 Allergy to other foods

== ENCOUNTER → 2021-10-21 | Outpatient (CLI) | payer OTHER ==
--- NOTE | 2021-10-21 19:07 | SFUN ---
SLEEP CENTER FOLLOW UP NOTE DATE OF SERVICE: 10/21/2021 This 56-year-old lady has been followed in Sleep Center for treatment of narcolepsy. Her dose of Adderall was adjusted, and currently the patient takes 30 mg of Adderall in the morning and 20 mg of Adderall in the middle of the day. With this regimen her alertness is under good control. In very rare cases she may take an additional 10 mg around 4 p.m. as necessary index, and that covers all of her day with good alertness. [place] Sleepiness Scale today is 4, which is absolutely normal. MEDICATIONS: 1. Celexa 40 mg once a day. 2. Clonidine 1 mg three times a day. 3. Singulair 10 mg once a day. 4. Pravastatin 80 mg once a day. 5. Plavix 75 mg a day. 6. Citalopram 40 mg once a day. 7. Isosorbide 60 mg once a day. 8. Losartan 50 mg once a day and 25 mg once a day. 9. Meclizine 25 mg as needed. 10.Zofran 4 mg is needed. PHYSICAL EXAMINATION: GENERAL: Pleasant patient in no distress. VITAL SIGNS: BP 133/82, HR 84, RR 15, height 5 feet 4-3/4 inches, weight 217 pounds, BMI 36.6, temperature 98.5, oxygen saturation at room air 95%. HEENT: PERRLA, EOMI, evaluation of oropharynx showed tongue protrudes midline. NECK: Supple, no JVD. Thyroid is not palpable. LUNGS: Clear to percussion and to auscultation. Good air exchange. No wheezing or rhonchi. HEART: S1, S2 regular. No murmurs, gallops, or rubs. ABDOMEN: Obese. EXTREMITIES: No clubbing or cyanosis. SEAFOOD PREPARER: Awake, alert, and oriented X3. Cranial nerves 2 to 7 intact. There is no fasciculation or atrophy. noted. No focal deficits observed. IMPRESSION: 1. Narcolepsy, type 1, with very rare episodes of cataplexy. Alertness under control with Adderall. 2. Obesity. 3. Hypertension. 4. History of periodic limb movements. 5. Acid reflux. 6. Hyperlipidemia. 7. History of transient ischemic attack 6 years ago. PLAN: 1. Continue treatment with Adderall 30 mg in the morning, 20 mg in the middle of the day, and if necessary additionally 10 mg in the late afternoon time. 2. Sleep hygiene with regular time in bed for at least 7-1/2 to 8 hours. 3. Daytime naps permitted. 4. Precautions related to driving. No driving if feeling sleepiness. Thank you very much for allowing me to participate in the management of your patient. Sincerely, Edgar Roche MD, PhD, FAASM Diplomat of [place] [employer] Sleep Medicine Board of [place] Linen Controller of [facility] [place] MMODL / DORYN: [id number] /
== END ==
LOC: SLEEP 15:56
PROVIDERS: ATTEND Internal Medicine
DX: G47.411 Narcolepsy with cataplexy (principal); E66.9 Obesity, unspecified; I10 Essential (primary) hypertension; K21.9 Gastro-esophageal reflux disease without esophagitis; G47.61 Periodic limb movement disorder; Z86.73 Personal history of transient ischemic attack (TIA), and cerebral infarction without residual deficits; Z79.01 Long term (current) use of anticoagulants; Z91.018 Allergy to other foods; Z88.5 Allergy status to narcotic agent; Z91.040 Latex allergy status; Z88.7 Allergy status to serum and vaccine; Z88.6 Allergy status to analgesic agent; F17.200 Nicotine dependence, unspecified, uncomplicated; Z68.36 Body mass index [BMI] 36.0-36.9, adult

== ENCOUNTER → 2022-02-12 | Outpatient (CLI) | payer OTHER ==
[2022-02-12 16:56] LABS: HGB 13.8 g/dL (12.0-15.0); MCH 29.7 pg (27.0-32.0); MCHC 32.1 g/dL (32.0-37.0); MCV 92.5 fL (80.0-97.0); NRBC Per 100 WBC 0 /100 WBCS (0.0-0.0); Platelet Count 296 X 10*3/uL (140-440); RBC 4.65 X 10*6/uL (4.10-5.20); RDW 12.6 % (11.5-14.5); WBC 8.79 X 10*3/uL (4.50-10.00)
[2022-02-12 17:28] LABS: ALT 23 U/L (8-44); AST 22 U/L (13-35); African American GFR (CKD) 83.4 (60.0-200.0); Albumin 4.5 g/dL (3.8-4.9); Albumin/Globulin Ratio 1.55 (1.60-3.17); Alkaline Phosphatase 104 U/L (41-126); BUN/Creat Ratio 13.22 Ratio (12.00-20.00); Blood Urea Nitrogen 11.9 mg/dL (9.0-27.0); Calcium 10.1 mg/dL (8.7-10.3); Carbon Dioxide 28.2 mmol/L (20.0-27.5); Chloride 100 mmol/L (96-109); Chol/HDL Ratio 3.14 Ratio; Globulin 2.9 g/dL (1.6-3.3); Glucose 122 mg/dL (70-110); LDL Cholesterol,Calculated 90.6 mg/dL (0.0-131.0); Potassium 4.6 mmol/L (3.5-5.5); Sodium 142 mmol/L (135-145); Total Protein 7.4 g/dL (6.2-8.2)
== END | disposition home or self-care (01) ==
LOC: LABWHC1 10:58
PROVIDERS: ATTEND Family Medicine
DX: Z00.01 Encounter for general adult medical examination with abnormal findings (principal); R03.0 Elevated blood-pressure reading, without diagnosis of hypertension
CPT/HCPCS: 36415; 80053; 80061; 84439; 84443; 84481; 85027

== ENCOUNTER → 2022-06-29 | Outpatient (CLI) | payer OTHER ==
--- NOTE | 2022-06-29 16:41 | P.PN ---
Subjective DATE: 06/29/2022 FOLLOW UP VISIT. Patient returned to sleep center for follow-up visit related to treatment of significant excessive daytime sleepiness secondary to narcolepsy. Patient is on treatment with Adderall presently 30 mg in the morning and 20 mg afternoon. With this regimen patient is able to control alertness during the day, still sometimes sleepiness on the second part of the day. . [place] sleepiness scale is 3, which is normal. MEDICATIONS:1. Adderall 2. Pravastatin 3. Plavix 4. Clonidine 5. Meclizine 6. Protonix 7. Losartan 8. Isosorbide 9. Celexa During physical exam: GENERAL: A pleasant patient without any distress. VITAL SIGNS: BP 163/91, HR 80, RR 16 , weight 210, body mass index 35.4, temperature 98.3, oxygen saturation at room air 99% . HEENT: PERRLA, EOMI. NECK: Supple. No JVD. LUNGS: Clear to percussion and to auscultation. Good air exchange. No wheezing or rhonchi. HEART: S1, S2 regular. ABDOMEN: Soft and nontender. EXTREMITIES: No clubbing or cyanosis. CT MRI TECHNOLOGIST: Awake, alert, and oriented x3. No focal deficit. Impressions: 1. Narcolepsy type I 2. Hypertension. 3. Hyperlipidemia. 4. History of TIA 6 years ago. 5. Obesity. 6. Acid reflux. 7. History of periodic limb movements. Plan: 1. Patient will continue treatment with Adderall, dose will be increased to 20 mg 3 times a day. 2. Sleep hygiene with regular time in bed for at least 8 hours. 3. Daytime naps permitted 4. Precautions related to driving. No driving if feel any sleepiness. Patient is aware about civil and criminal liability for unsafe driving, promised to follow recommendations. 5. Follow up visit in 4-6 months or earlier if patient has any problems. Thank you very much for allowing me to participate in the management of your patient. Edgar Roche MD, PhD, FAASM. Diplomat of [place] [employer], Sleep Medicine Board by [place] Classified Ad Taker of [facility] [place]
== END ==
LOC: SLEEP 15:35
PROVIDERS: ATTEND Internal Medicine
DX: G47.419 Narcolepsy without cataplexy (principal); I10 Essential (primary) hypertension; E78.5 Hyperlipidemia, unspecified; E66.9 Obesity, unspecified; K21.9 Gastro-esophageal reflux disease without esophagitis; G47.61 Periodic limb movement disorder; Z86.73 Personal history of transient ischemic attack (TIA), and cerebral infarction without residual deficits; Z88.6 Allergy status to analgesic agent; Z91.040 Latex allergy status; Z88.5 Allergy status to narcotic agent; Z91.018 Allergy to other foods; Z88.7 Allergy status to serum and vaccine; F17.200 Nicotine dependence, unspecified, uncomplicated
CPT/HCPCS: 99212

== ENCOUNTER → 2023-01-04 | Outpatient (CLI) | payer OTHER ==
--- NOTE | 2023-01-04 17:31 | P.PN ---
Subjective DATE: 01/04/2023 FOLLOW UP VISIT. Patient returned to sleep center for follow-up visit related to treatment of significant excessive daytime sleepiness secondary to narcolepsy. Patient is on treatment with Adderall 40 mg in the morning and 20 mg afternoon. With this regimen patient is able to control sure alertness .[place] sleepiness scale is 3, which is totally normal today. MEDICATIONS:1. Adderall 20 mg 2 tablets in the morning and 1 tablet afternoon 2. Lisinopril 10 mg once a day 3. Meclizine 25 mg once a day 4. Metoprolol 50 mg in the morning and 12.5 mg at 4 PM 5. Metformin 500 mg 6. Protonix 40 mg once a day 7. Pravastatin 80 mg once a day 8. Seroquel 100 mg once a day 9. Plavix 75 mg once a day During physical exam: GENERAL: A pleasant patient without any distress. VITAL SIGNS: BP 117/78, HR 91, RR 16 , weight 195.0, temperature 97.3, oxygen saturation at room air 96% . HEENT: PERRLA, EOMI. NECK: Supple. No JVD. LUNGS: Clear to percussion and to auscultation. Good air exchange. No wheezing or rhonchi. HEART: S1, S2 regular. ABDOMEN: Soft and nontender. EXTREMITIES: No clubbing or cyanosis. IT GENERALIST: Awake, alert, and oriented x3. No focal deficit. Impressions: 1. Narcolepsy type I 2. Hypertension. 3. History of TIA 6-1/2 year ago. 4. Obesity. 5. Hyperlipidemia. 6. Acid reflux. 7. History of periodic limb movements, no complaints of the present time. Plan: 1. Patient will continue treatment with Adderall 20 mg 2 tablets in the morning and 1 tablet afternoon 2. Sleep hygiene with regular time in bed for at least 8 hours. 3. Daytime naps permitted 4. Precautions related to driving. No driving if feel any sleepiness. Patient is aware about civil and criminal liability for unsafe driving, promised to follow recommendations. 5. Follow up visit in 4-6 months or earlier if patient has any problems. Thank you very much for allowing me to participate in the management of your patient. Edgar Roche MD, PhD, FAASM. Diplomat of [place] [employer], Sleep Medicine Board by [place] Superintendent Renting Managing of [facility] [place]
== END ==
LOC: 3 N SLEEP 15:54
PROVIDERS: ATTEND Internal Medicine
DX: G47.419 Narcolepsy without cataplexy (principal); I10 Essential (primary) hypertension; E66.9 Obesity, unspecified; K21.9 Gastro-esophageal reflux disease without esophagitis; E78.5 Hyperlipidemia, unspecified; F17.200 Nicotine dependence, unspecified, uncomplicated; G47.61 Periodic limb movement disorder; Z86.73 Personal history of transient ischemic attack (TIA), and cerebral infarction without residual deficits; Z79.84 Long term (current) use of oral hypoglycemic drugs; Z79.899 Other long term (current) drug therapy; Z88.5 Allergy status to narcotic agent; Z91.040 Latex allergy status; Z91.018 Allergy to other foods; Z88.1 Allergy status to other antibiotic agents; Z88.6 Allergy status to analgesic agent; Z88.7 Allergy status to serum and vaccine
CPT/HCPCS: 99212

== ENCOUNTER → 2023-07-12 | Outpatient (CLI) | payer BC, OTHER ==
--- NOTE | 2023-07-14 15:31 | MM ---
Reason for Exam: Screening (asymptomatic). Last mammogram was performed 6 year(s) and 10 month(s) ago. Patient History: Menarche at age 13. First Full-Term at age 32. Late child-bearing (after 31). Postmenopausal. Paternal grandmother had breast cancer, age 50. Maternal grandmother had breast cancer, age 73. Brother had breast cancer, age 18. Risk Values: [place] 5 year model risk: 2.5%. NCI Lifetime model risk: 15.6%. Prior Study Comparison: 09/19/2016 Bilateral Screening Mammogram, [facility]. Tissue Density: There are scattered fibroglandular densities. Findings: Analyzed By CAD. Pattern appears symmetrical and stable. No significant interval change is evident. A benign coarse calcifications within the left breast. No suspicious groups of microcalcifications, spiculated or lobular masses, architectural distortion or other secondary signs of malignancy are mammographically apparent. Overall Assessment: Benign, BI-RAD 2 Management: Screening Mammogram of both breasts in 1 year. A negative mammogram report should not preclude additional follow up of suspicious palpable abnormalities. Patient should continue monthly self breast exam. A clinical breast exam by your physician is recommended on an annual basis and results should be correlated with mammographic findings. Electronically signed and approved by: Solomon Hemphill D.O. Radiologis
== END | disposition home or self-care (01) ==
LOC: RADMAMWWP 13:07
PROVIDERS: ATTEND Student in an Organized Health Care Education/Training Program
DX: Z12.31 Encounter for screening mammogram for malignant neoplasm of breast (principal); Z80.3 Family history of malignant neoplasm of breast; Z78.0 Asymptomatic menopausal state
CPT/HCPCS: 77063; 77067

== ENCOUNTER → 2023-08-03 | Outpatient (CLI) | payer BC ==
--- NOTE | 2023-08-03 16:13 | P.PN ---
Subjective DATE: 08/03/2023 FOLLOW UP VISIT. Patient returned to sleep center for follow-up visit related to treatment of significant excessive daytime sleepiness secondary to narcolepsy. Patient continued treatment with Adderall 20 mg 2 tablets at 7 AM and 1 tablet at 1 PM. With this regimen patient is able to control sure alertness. .[place] sleepiness scale is 0. No side effects of medication. MEDICATIONS:1. Metoprolol 2. Lisinopril 10 mg once a day 3. Meclizine 25 mg once a day 4. Protonix 40 mg once a day 5. Metformin 500 mg 6. Seroquel 100 mg once a day 7. Plavix 75 mg once a day During physical exam: GENERAL: A pleasant patient without any distress. VITAL SIGNS: BP 131/88, HR 84, RR 12, weight 192.2, temperature 98.0, oxygen saturation at room air 97 percent. HEENT: PERRLA, EOMI. NECK: Supple. No JVD. LUNGS: Clear to percussion and to auscultation. Good air exchange. No wheezing or rhonchi. HEART: S1, S2 regular. ABDOMEN: Soft and nontender. EXTREMITIES: No clubbing or cyanosis. LINUX SYSTEM ADMIN: Awake, alert, and oriented x3. No focal deficit. Impressions: 1. Narcolepsy type I 2. Hypertension. 3. Obesity, BMI 32.4, patient lost 3 pounds comparing with previous visit. 4. Hyperlipidemia. 5. History of periodic limb movements, clinically no problems at the present time 6. Acid reflux. Plan: 1. Patient will continue treatment with Adderall 40 mg in the morning and 20 mg afternoon. 2. Sleep hygiene with regular time in bed for at least 8 hours. 3. Daytime naps permitted 4. Precautions related to driving. No driving if feel any sleepiness. Patient is aware about civil and criminal liability for unsafe driving, promised to follow recommendations. 5. Follow up visit in 4-6 months or earlier if patient has any problems. Thank you very much for allowing me to participate in the management of your patient. Edgar Roche MD, PhD, FAASM. Diplomat of [place] [employer], Sleep Medicine Board by [employer] [employer] Carbon Lamp Cleaner of [facility] [place]
== END ==
LOC: 3 N SLEEP 15:35
PROVIDERS: ATTEND Internal Medicine
DX: G47.33 Obstructive sleep apnea (adult) (pediatric) (principal); E66.9 Obesity, unspecified; I10 Essential (primary) hypertension; G47.419 Narcolepsy without cataplexy; E78.5 Hyperlipidemia, unspecified; F17.200 Nicotine dependence, unspecified, uncomplicated; K21.9 Gastro-esophageal reflux disease without esophagitis; Z68.32 Body mass index [BMI] 32.0-32.9, adult; Z79.02 Long term (current) use of antithrombotics/antiplatelets; Z79.899 Other long term (current) drug therapy; Z91.018 Allergy to other foods; Z88.5 Allergy status to narcotic agent; Z88.6 Allergy status to analgesic agent; Z91.040 Latex allergy status; Z88.7 Allergy status to serum and vaccine; Z88.8 Allergy status to other drugs, medicaments and biological substances
CPT/HCPCS: 99212

== ENCOUNTER 2024-01-19 14:55 | Emergency (ER) | payer BC ==
[2024-01-19 15:03] VITALS: PULSE 87
[2024-01-19 15:42] LABS: Basophils % (A) 1 %; Eosinophils # (A) 0.2 k/uL (0-0.7); Eosinophils % (A) 3 %; HCT 41.7 % (34.0-46.0); HGB 13.9 gm/dL (11.4-16.0); Lymphocytes # (A) 2.6 k/uL (1.0-4.8); Lymphocytes % (A) 35 %; MCH 31.7 pg (25.0-35.0); MCHC 33.4 g/dL (31.0-37.0); Mean Platelet Volume 7.9; Monocytes # (A) 0.4 k/uL (0-1.0); Monocytes % (A) 6 %; Neutrophils # (A) 4.1 k/uL (1.3-7.7); Neutrophils % (A) 55 %; Platelet Count 306 k/uL (150-450); RBC 4.39 m/uL (3.80-5.40); RDW 12.4 % (11.5-15.5); WBC 7.4 k/uL (3.8-10.6)
--- NOTE | 2024-01-19 15:51 | ED ---
General Adult HPI - General Chief complaint: Recheck/Abnormal Lab/Rx Stated complaint: abn labs Time Seen by Provider: 01/19/24 14:59 Source: patient Mode of arrival: ambulatory Limitations: no limitations - History of Present Illness Initial comments: Dictation was produced using Wandera dictation software. please excuse any grammatical, word or spelling errors. Chief Complaint: 58-year-old female with elevated potassium level History of Present Illness: Patient 58-year-old female she had blood drawn yesterday from her primary care doctor. She went for a routine visit states that she had not had blood drawn and several months. Patient was called today by prior care doctor told to come to the ER for elevated potassium. She told her potassium was 7.1. Patient denies any complaints. The ROS documented in this emergency department record has been reviewed and confirmed by me. Those systems with pertinent positive or negative responses h ave been documented in the HPI. All other systems are other negative and/or noncontributory. - Related Data Home Medications Medication Instructions Recorded Confirmed Citalopram Hydrobromide [CeleXA] 40 mg PO HS 05/06/14 06/26/20 Cetirizine HCl [Zyrtec] 10 mg PO HS 08/17/15 06/26/20 Isosorbide Mononitrate ER [Imdur] 60 mg PO HS 08/17/15 06/26/20 Nitroglycerin Sl Tabs [Nitrostat] 0.4 mg SUBLINGUAL Q5M PRN 08/17/15 06/26/20 Pantoprazole Sodium [Protonix] 40 mg PO HS 08/17/15 06/26/20 Ondansetron [Zofran ODT] 4 mg PO Q8HR PRN 05/27/19 06/26/20 Potassium 200 mg PO HS 05/27/19 06/26/20 amLODIPine [Norvasc] 2.5 mg PO HS 08/21/19 06/26/20 Clopidogrel [Plavix] 75 mg PO HS 10/10/19 06/26/20 Losartan [Cozaar] 50 mg PO HS 10/10/19 06/26/20 Linaclotide [Linzess] 290 mcg PO PC-LUNCH 03/24/20 06/26/20 QUEtiapine FUMARATE 100 mg PO HS 03/24/20 06/26/20 Methylphenidate HCl [Ritalin] 10 mg PO AC-TID 06/24/20 06/26/20 traMADol HCl [Ultram] 50 mg PO BID 06/24/20 06/26/20 Previous Rx's Medication Instructions Recorded Pravastatin Sodium [Pravachol] 80 mg PO HS #30 tab 05/29/19 Docusate [Colace] 100 mg PO DAILY #10 capsule 06/26/20 HYDROcodone/APAP 5-325MG [[facility] 1 tab PO Q4HR PRN 3 Days #18 tab 06/26/20 5-325] Dextroamphetamine/Amphetamine 20 mg PO BID 30 Days #60 tab 07/14/22 [Adderall] Dextroamphetamine/Amphetamine 20 mg PO TID 3 Days #90 tab 08/11/22 [Adderall] Dextroamphetamine/Amphetamine 20 mg PO TID 3 Days #90 tab 09/08/22 [Adderall] Dextroamphetamine/Amphetamine 20 mg PO TID 3 Days #90 tab 02/16/23 [Adderall] Allergies Allergy/AdvReac Type Severity Reaction Status Date / Time apple Allergy Itching Verified 01/19/24 15:03 codeine Allergy PASSED OUT Verified 01/19/24 15:03 ibuprofen [From Motrin] Allergy Nausea & Verified 01/19/24 15:03 Vomiting latex Allergy Rash/Hives Verified 01/19/24 15:03 tetanus and diphtheria Allergy Rash/Hives Verified 01/19/24 15:03 toxoids aspirin AdvReac Nausea & Verified 01/19/24 15:03 Vomiting naproxen [From Aleve] AdvReac Chest Pain Verified 01/19/24 15:03 Review of Systems ROS Statement: Those systems with pertinent positive or pertinent negative responses have been documented in the HPI. ROS Other: All systems not noted in ROS Statement are negative. Past Medical History Past Medical History: Cancer, Chest Pain / Angina, CVA/TIA, GERD/Reflux, Hearing Disorder / Deafness, Hyperlipidemia, Hypertension, Skin Disorder Additional Past Medical History / Comment(s): HX OF TIA AT 48 YRS OLD WITH LEFT EAR LOW FREQUENCY HEARING LOSS AND RINGING. HX OF STOMACH ULERS (SINCE CHILD).,HX LOW POTASSIUM. 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 History of Any Multi-Drug Resistant Organisms: None Reported Past Surgical History: Heart Catheterization Additional Past Surgical History / Comment(s): LEEP procedure. colonoscopy, BX OF UTERUS Past Anesthesia/Blood Transfusion Reactions: No Reported Reaction Past Psychological History: Anxiety Smoking Status: Current every day smoker - Past Family History Mother Family Medical History: CVA/TIA, Deep Vein Thrombosis (DVT), Myocardial Infa rction (NE) Father Family Medical History: Cancer Additional Family Medical History / Comment(s): Colon cancer. General Exam - General Exam Comments Initial Comments: PHYSICAL EXAM: General Impression: Alert and oriented x3, not in acute distress HEENT: Normocephalic atraumatic, extra-ocular movements intact, pupils equal and reactive to light bilaterally, mucous membranes moist. Cardiovascular: Heart regular rate and rhythm Chest: Able to complete full sentences, no retractions, no tachypnea Abdomen: abdomen soft, non-tender, non-distended, no organomegaly Musculoskeletal: Pulses present and equal in all extremities, no peripheral edema Motor: no focal deficits noted Neurological: CN II-XII grossly intact, no focal motor or sensory deficits noted Skin: Intact with no visualized rashes Psych: Normal affect and mood Limitations: no limitations Course Vital Signs 01/19/24 15:00 Temperature 97.9 F Pulse Rate 87 Respiratory 16 Rate Blood Pressure 108/65 O2 Sat by Pulse 97 Oximetry EKG Findings - EKG Comments: EKG Findings:: My EKG interpretation: Ventricular rate 81, sinus rhythm,. 149, cures 1 1, QTc 4 3. No [place] prolongation, no QTC prolongation, no ST or T-wave changes noted. EKG compared to [default value] showing no changes. Overall, this EKG is unremarkable Medical Decision Making - Medical Decision Making Was pt. sent in by a medical professional or institution (, PA, SQUEEGEE TENDER, urgent care, hospital, or [facility]...) When possible be specific @ -No Did you speak to anyone other than the patient for history (EMS, parent, family, police, friend...)? What history was obtained from this source @ -No Did you review nursing and triage notes (agree or disagree)? Why? @ -I reviewed and agree with nursing and triage notes Were old charts reviewed (outside hosp., previous admission, EMS record, old EKG, old radiological studies, urgent care reports/EKG's, [facility] records)? Report findings @ -No old charts were reviewed Differential Diagnosis (chest pain, altered mental status, abdominal pain women, abdominal pain men, vaginal bleeding, musculoskeletal, weakness, fever, dyspnea, syncope, headache, dizziness, GI bleed, back pain, seizure, CVA, palpatations, mental health)? @ -Hypokalemia, hypomagnesemia, rhabdomyolysis EKG interpreted by me (3pts min.). @ -None done X-rays interpreted by me (1pt min.). @ -None done CT interpreted by me (1pt min.). @ -None done U/S interpreted by me (1pt. min.). @ -None done What testing was considered but not performed or refused? (CT, X-rays, U/S, labs)? Why? @ -None What meds were considered but not given or refused? Why? @ -None Was smoking cessation discussed for >3mins.? @ -No Were there social determinants of health that impacted care today? How? (Homelessness, low income, unemployed, alcoholism, drug addiction, transportation, low edu. Level, literacy, decrease access to med. care, fpc, rehab)? @ -No Was there de-escalation of care discussed even if they declined (Discuss DNR or withdrawal of care, Hospice)? DNR status @ -No What co-morbidities impacted this encounter? (DM, HTN, Smoking, COPD, CAD, Cancer, CVA, ARF, Chemo, Hep., AIDS, mental health diagnosis, sleep apnea, morbid obesity)? @ -None Was patient admitted / discharged? Hospital course, mention meds given and route, prescriptions, significant lab abnormalities, going to OR and other pertinent info. @ -58-year-old female presents to the ER for elevated potassium level drawn on outpatient lab. Patient had these labs drawn as a routine appointment. Patient has no complaints for vital signs stable. EKG is benign. Laboratory evaluation obtained. CBC, coag panel metabolic panel is unremarkable. Potassium levels 4.3. Patient states elevated potassium level yesterday is likely lab error. Patient discharged advised follow-up with primary care doctor. Did you discuss the management of the patient with other professionals (professionals i.e. , PA, SQUEEGEE TENDER, lab, RT, psych nurse, clinical social worker, bottle house quality control technician, teacher, aeronautical engineering officer, heel caser)? Give summary @ -No Was critical care preformed (if so, how long)? @ -No Undiagnosed new problem with uncertain prognosis? @ -No Drug Therapy requiring intensive monitoring for toxicity (Heparin, Nitro, Insulin, Cardizem)? @ -No Were any procedures done? @ -No Diagnosis/symptom? Acute, or Chronic, or Acute on Chronic? Uncomplicated (without systemic symptoms) or Complicated (systemic symptoms)? @ -Abnormal outpatient lab Side effects of treatment? @ -No Exacerbation, Progression, or Severe Exacerbation? @ -No Poses a threat to life or bodily function? How? (Chest pain, [place], [place], pneumonia, PE, COPD, DKA, ARF, appy, cholecystitis, CVA, Diverticulitis, Homicidal, Suicidal, threat to staff... and all critical care pts) @ -No - Lab Data Result diagrams: 01/19/24 15:30 01/19/24 15:30 Lab Results 01/19/24 01/19/24 01/19/24 Range/Units 15:30 15:30 15:30 WBC 7.4 (3.8-10.6) k/uL RBC 4.39 (3.80-5.40) m/uL Hgb 13.9 (11.4-16.0) gm/dL Hct 41.7 (34.0-46.0) % MCV 95.0 (80.0-100.0) fL MCH 31.7 (25.0-35.0) pg MCHC 33.4 (31.0-37.0) g/dL RDW 12.4 (11.5-15.5) % Plt Count 306 (150-450) k/uL MPV 7.9 Neutrophils % 55 % Lymphocytes % 35 % Monocytes % 6 % Eosinophils % 3 % Basophils % 1 % Neutrophils # 4.1 (1.3-7.7) k/uL Lymphocytes # 2.6 (1.0-4.8) k/uL Monocytes # 0.4 (0-1.0) k/uL Eosinophils # 0.2 (0-0.7) k/uL Basophils # 0.0 (0-0.2) k/uL PT 11.0 (10.0-12.5) sec INR 1.0 (<1.2) APTT 24.4 (22.0-30.0) sec Sodium 138 (137-145) mmol/L Potassium 4.3 (3.5-5.1) mmol/L Chloride 106 (98-107) mmol/L Carbon Dioxide 24 (22-30) mmol/L Anion Gap 8 mmol/L BUN 15 (7-17) mg/dL Creatinine 0.73 (0.52-1.04) mg/dL Est GFR (CKD-EPI)AfAm >90 (>60 ml/min/1.73 sqM) Est GFR (CKD-EPI)NonAf >90 (>60 ml/min/1.73 sqM) Glucose 98 (74-99) mg/dL Calcium 9.8 (8.4-10.2) mg/dL Magnesium 1.8 (1.6-2.3) mg/dL Total Bilirubin 0.3 (0.2-1.3) mg/dL AST 23 (14-36) U/L ALT 15 (4-34) U/L Alkaline Phosphatase 96 (38-126) U/L Troponin I (0.000-0.034) ng/mL Total Protein 6.9 (6.3-8.2) g/dL Albumin 4.4 (3.5-5.0) g/dL 01/19/24 Range/Units 15:30 WBC (3.8-10.6) k/uL RBC (3.80-5.40) m/uL Hgb (11.4-16.0) gm/dL Hct (34.0-46.0) % MCV (80.0-100.0) fL MCH (25.0-35.0) pg MCHC (31.0-37.0) g/dL RDW (11.5-15.5) % Plt Count (150-450) k/uL MPV Neutrophils % % Lymphocytes % % Monocytes % % Eosinophils % % Basophils % % Neutrophils # (1.3-7.7) k/uL Lymphocytes # (1.0-4.8) k/uL Monocytes # (0-1.0) k/uL Eosinophils # (0-0.7) k/uL Basophils # (0-0.2) k/uL PT (10.0-12.5) sec INR (<1.2) APTT (22.0-30.0) sec Sodium (137-145) mmol/L Potassium (3.5-5.1) mmol/L Chloride (98-107) mmol/L Carbon Dioxide (22-30) mmol/L Anion Gap mmol/L BUN (7-17) mg/dL Creatinine (0.52-1.04) mg/dL Est GFR (CKD-EPI)AfAm (>60 ml/min/1.73 sqM) Est GFR (CKD-EPI)NonAf (>60 ml/min/1.73 sqM) Glucose (74-99) mg/dL Calcium (8.4-10.2) mg/dL Magnesium (1.6-2.3) mg/dL Total Bilirubin (0.2-1.3) mg/dL AST (14-36) U/L ALT (4-34) U/L Alkaline Phosphatase (38-126) U/L Troponin I <0.012 (0.000-0.034) ng/mL Total Protein (6.3-8.2) g/dL Albumin (3.5-5.0) g/dL Disposition Clinical Impression: Abnormal laboratory test Disposition: HOME SELF-CARE Condition: Good Instructions (If sedation given, give patient instructions): Hyperkalemia (ED) Is patient prescribed a controlled substance at d/c from ED?: No Referrals: Irwin Hook [Primary Care Provider] - 1-2 days Time of Disposition: 16:20
--- NOTE | 2024-01-19 15:58 | XR ---
EXAMINATION TYPE: XR chest 2V DATE OF EXAM: 01/19/2024 COMPARISON: 05/27/2019 HISTORY: Chest pain TECHNIQUE: Frontal and lateral views of the chest are obtained. FINDINGS: There is no focal air space opacity, pleural effusion, or pneumothorax seen. The cardiac silhouette size is within normal limits. The osseous structures are intact. IMPRESSION: No acute cardiopulmonary process.
[2024-01-19 15:59] LABS: Partial Thromboplastin Time 24.4 sec (22.0-30.0)
[2024-01-19 16:06] LABS: ALT 15 U/L (4-34); AST 23 U/L (14-36); African American GFR (CKD) >90 (>60 ml/min/1.73 sqM); Albumin 4.4 g/dL (3.5-5.0); Alkaline Phosphatase 96 U/L (38-126); Anion Gap 8 mmol/L; Blood Urea Nitrogen 15 mg/dL (7-17); Calcium 9.8 mg/dL (8.4-10.2); Carbon Dioxide 24 mmol/L (22-30); Chloride 106 mmol/L (98-107); Glucose 98 mg/dL (74-99); Magnesium 1.8 mg/dL (1.6-2.3); Non-African American GFR(CKD) >90 (>60 ml/min/1.73 sqM); Potassium 4.3 mmol/L (3.5-5.1); Sodium 138 mmol/L (137-145); Total Bilirubin 0.3 mg/dL (0.2-1.3); Total Protein 6.9 g/dL (6.3-8.2)
[2024-01-19 16:31] VITALS: BP 123/74; RESP 18; TEMP 98.1
== END 2024-01-19 16:27 | disposition home or self-care (01) ==
LOC: EC 14:55
DX: R79.9 Abnormal finding of blood chemistry, unspecified (principal); F17.200 Nicotine dependence, unspecified, uncomplicated; Z88.6 Allergy status to analgesic agent; Z91.040 Latex allergy status; Z88.5 Allergy status to narcotic agent; Z91.018 Allergy to other foods; Z88.7 Allergy status to serum and vaccine; Z88.8 Allergy status to other drugs, medicaments and biological substances
CPT/HCPCS: 36415; 71046; 80053; 83735; 84484; 85025; 85610; 85730; 93005; 99284

== ENCOUNTER → 2024-10-31 | Outpatient (CLI) | payer SELFPAY ==
[2024-10-31 15:49] VITALS: BP 110/70; PULSE 78; RESP 16; TEMP 98.2
--- NOTE | 2024-10-31 16:16 | P.PROGSL ---
Subjective DATE: 10/31/2024 FOLLOW UP VISIT. Patient returned to sleep center for follow-up visit related to treatment of significant excessive daytime sleepiness secondary to narcolepsy. Patient is on treatment with Adderall 20 mg 3 tablets a day. Patient is able to control her alertness during the day pretty well with medication. According to patient no any side effects. No tachycardia or jittering. . [place] sleepiness scale is 0, when patient is on medication. MEDICATIONS: Please see below During physical exam: GENERAL: A pleasant patient without any distress. VITAL SIGNS: Please see below. HEENT: PERRLA, EOMI. NECK: Supple. No JVD. LUNGS: Clear to percussion and to auscultation. Good air exchange. No wheezing or rhonchi. HEART: S1, S2 regular. ABDOMEN: Soft and nontender. EXTREMITIES: No clubbing or cyanosis. GREEN MARKETER: Awake, alert, and oriented x3. No focal deficit. Impressions: 1. Narcolepsy type I 2. Hypertension. 3. Very mild obesity, BMI 31.7, patient lost 15 pounds since previous visit. 4. Hyperlipidemia. 5. History of periodic limb movement, no complaints at the present time. 6. Acid reflux. Plan: 1. Patient will continue treatment with Adderall 20 mg 3 tablets a day. 2. Sleep hygiene with regular time in bed for at least 8 hours. 3. Daytime naps permitted 4. Precautions related to driving. No driving if feel any sleepiness. Patient is aware about civil and criminal liability for unsafe driving, promised to follow recommendations. 5. Follow up visit in 4-6 months or earlier if patient has any problems. Thank you very much for allowing me to participate in the management of your patient. Edgar Roche MD, PhD, FAASM. Diplomat of [place] [employer], Sleep Medicine Board by [place] [employer] Rubber Compounder Formulator of [facility] [place] Objective - Vital Signs Vital Signs: Vital Signs Temp 98.2 F 10/31/24 15:48 Pulse 78 10/31/24 15:48 Resp 16 10/31/24 15:48 BP 110/70 10/31/24 15:48 Pulse Ox 96 10/31/24 15:48 FiO2 Intake & Output 10/30/24 10/31/24 10/31/24 18:59 06:59 18:59 Weight 80.286 kg Home Medications: Home Medications Medication Instructions Recorded Confirmed Type Citalopram Hydrobromide [CeleXA] 40 mg PO HS 05/06/14 06/26/20 History Cetirizine HCl [Zyrtec] 10 mg PO HS 08/17/15 06/26/20 History Isosorbide Mononitrate ER [Imdur] 60 mg PO HS 08/17/15 06/26/20 History Nitroglycerin Sl Tabs [Nitrostat] 0.4 mg SUBLINGUAL Q5M PRN 08/17/15 06/26/20 History Pantoprazole Sodium [Protonix] 40 mg PO HS 08/17/15 10/31/24 History Ondansetron [Zofran ODT] 4 mg PO Q8HR PRN 05/27/19 06/26/20 History Potassium 200 mg PO HS 05/27/19 10/31/24 History Pravastatin Sodium [Pravachol] 80 mg PO HS #30 tab 05/29/19 10/31/24 Rx amLODIPine [Norvasc] 2.5 mg PO HS 08/21/19 06/26/20 History Clopidogrel [Plavix] 75 mg PO HS 10/10/19 06/26/20 History Losartan [Cozaar] 50 mg PO HS 10/10/19 06/26/20 History Linaclotide [Linzess] 290 mcg PO PC-LUNCH 03/24/20 06/26/20 History QUEtiapine FUMARATE 100 mg PO HS 03/24/20 10/31/24 History Methylphenidate HCl [Ritalin] 10 mg PO AC-TID 06/24/20 06/26/20 History traMADol HCl [Ultram] 50 mg PO BID 06/24/20 06/26/20 History Docusate [Colace] 100 mg PO DAILY #10 capsule 06/26/20 Rx HYDROcodone/APAP 5-325MG [[place] 1 tab PO Q4HR PRN 3 Days #18 tab 06/26/20 Rx 5-325] Dextroamphetamine/Amphetamine 20 mg PO BID 30 Days #60 tab 07/14/22 Rx [Adderall] Dextroamphetamine/Amphetamine 20 mg PO TID 3 Days #90 tab 08/11/22 Rx [Adderall] Dextroamphetamine/Amphetamine 20 mg PO TID 3 Days #90 tab 09/08/22 Rx [Adderall] Dextroamphetamine/Amphetamine 20 mg PO TID 3 Days #90 tab 02/16/23 10/31/24 Rx [Adderall] Isosorbide Mononitrate [Isosorbide 60 mg PO DAILY 10/31/24 10/31/24 History Mononitrate ER] Metoprolol Succinate [[place] 50 mg PO DAILY 10/31/24 10/31/24 History Sprinkle] Metoprolol Succinate [Metoprolol 25 mg PO DAILY 10/31/24 10/31/24 History Succinate ER] lisinopriL [Zestril] 10 mg PO DAILY 10/31/24 10/31/24 History
== END ==
LOC: 3 N SLEEP 14:46
PROVIDERS: ATTEND Internal Medicine
DX: G47.419 Narcolepsy without cataplexy (principal); I10 Essential (primary) hypertension; E66.9 Obesity, unspecified; E78.5 Hyperlipidemia, unspecified; K21.9 Gastro-esophageal reflux disease without esophagitis; F17.200 Nicotine dependence, unspecified, uncomplicated; Z68.31 Body mass index [BMI] 31.0-31.9, adult; Z86.69 Personal history of other diseases of the nervous system and sense organs; Z91.018 Allergy to other foods; Z91.040 Latex allergy status; Z88.5 Allergy status to narcotic agent; Z88.6 Allergy status to analgesic agent; Z88.7 Allergy status to serum and vaccine
CPT/HCPCS: 99212